=== PATIENT | female | born 1950 | race Caucasian/White ===

== ENCOUNTER 2020-04-28 08:31 | Outpatient (CLI) | payer OTHER, SELFPAY ==
--- NOTE | ~2020-04-28 | DEXA_ITS ---
Bone Density Report Name: Vy Munoz Age: 70 Sex: Female Ethnicity: White Date of : 1950 Indication: postmenopausal; prior fracture; hysterectomy; Referring Provider: Yadiel, Sharon Jimenez Study: Bone densitometry was performed. Exam Date: April 28, 2020 Accession number: [id number] Bone Density: Region BMD T-score Z-score Classification AP Spine (L1-L4) 1.004 -0.4 1.7 Normal Femoral Neck (Left) 0.785 -0.6 1.2 Normal Total Hip (Left) 0.976 0.3 1.8 Normal Total Hip Bilateral Avg 0.993 0.4 1.9 Normal Femoral Neck (Right) 0.793 -0.5 1.3 Normal Total Hip (Right) 1.008 0.5 2.1 Normal World Health Organization criteria for BMD impression classify patients as: Normal (T-score at or above -1.0), Osteopenia (T-score between -1.0 and -2.5), or Osteoporosis (T-score at or below -2.5). 10-year Fracture Risk: FRAX not reported because: All T-scores for Spine Total, Hip Total, Femoral Neck at or above -1.0 Previous Exams: Region Exam Age BMD T-score BMD Change BMD Change Date g/cm2 vs Baseline vs Previous AP Spine(L1-L4) 04/28/2020 70 1.004 -0.4 0.013(1.3%) 0.013(1.3%) 02/15/2018 68 0.991 -0.5 Total Hip(Left) 04/28/2020 70 0.976 0.3 0.016(1.7%) 0.016(1.7%) 02/15/2018 68 0.960 0.1 Total Hip(Right) 04/28/2020 70 1.008 0.5 0.041(4.3%)* 0.041(4.3%)* 02/15/2018 68 0.966 0.2 *Denotes significance at 95% confidence level, LSC for AP Spine = 0.022 g/cm2, LSC for Total Hip = 0.027 g/cm2 Clinical Information Provided by Patient: Has had a low trauma fracture Has used the following medications: Calcium Has the following medical conditions: Hysterectomy Patient maximum height was 62 Menopause Age: 50 Drinks caffeinated beverages Onset of menses at age 13 Number of children 4 Impression: The patient has normal bone mass. The patient has risk factors, including: previous fracture. No significant bone loss was observed. Discussion: BONE DENSITY IS ABOVE THE MINIMUM DESIRABLE LEVEL AT ALL SKELETAL SITES TESTED. This patient?s bone mineral density is above the minimum desirable level (T-score -1.0 or better) at all sites measured. The patient should follow a healthful lifestyle (good nutrition with adequate calcium and vitamin D, and appropriate weight-bearing exercise). Follow-Up: Consider repeating this study in 5 years or sooner if there is some new clinical indication. Reported by: SEE on 04/28/2020 9:0
--- NOTE | ~2020-04-28 | MM_ITS ---
EXAMINATION: MM screening austyn BI w brenda HISTORY: Screening mammogram TECHNIQUE: Craniocaudal and mediolateral oblique 3-D tomosynthesis images were obtained and synthetic 2-D images were generated. CAD analysis was submitted and interpreted. COMPARISON: 02/26/2019, 02/15/2018, 02/02/2017 bilateral digital screening mammogram examinations BREAST PARENCHYMAL COMPOSITION: The breasts are almost entirely fatty. FINDINGS: There is no evidence of suspicious mass, calcification, or architectural distortion to sugg est malignancy in either breast. There has been no suspicious interval change. IMPRESSION: 1. No mammographic evidence of malignancy. 2. Recommend routine screening mammography in one year. BI-RADS Category 1: Negative Reviewed, dictated and finalized at location A. ING AGENCY MANAGER
== END 2020-04-28 08:32 | disposition home or self-care (01) ==
PROVIDERS: Visit Provider Nurse Practitioner Obstetrics & Gynecology
DX: Z12.31 Encounter for screening mammogram for malignant neoplasm of breast (principal); Z78.0 Asymptomatic menopausal state
CPT/HCPCS: 77063; 77067; 77080

== ENCOUNTER 2020-11-07 15:21 | Emergency (ER) | payer OTHER, SELFPAY ==
--- NOTE | ~2020-11-07 | XR_ITS ---
XR ankle RT min 3V DATE: 11/07/2020 15:40 INDICATION: Fall down steps this morning. Pain and swelling of lateral right ankle TECHNIQUE: 4 views COMPARISON: None FINDINGS: There is moderate lateral soft tissue swelling. Subtle linear nondisplaced lateral malleolar fracture is suspected. The medial and posterior malleoli are intact. Ankle mortise is preserved. Ankle joint effusion. Osteopenia. IMPRESSION: Subtle linear nondisplaced lateral malleolar fracture is suggested, with moderate overlyi ng soft tissue swelling, ankle joint effusion Reviewed, dictated and finalized at location A. IMPRESSION: Subtle linear nondisplaced lateral malleolar fracture is suggested, with moderate overlying soft tissue swelling, ankle joint effusion
[2020-11-07 15:25] VITALS: BP 132/72; PULSE 71; RESP 16; TEMP 37.1; O2SAT 97
--- NOTE | 2020-11-07 15:25 | ED.LOWEXIN ---
HPI - Extremity Injury (Lower) General Chief Complaint: Extremity Injury, Lower Stated Complaint: injured r ankle Time Seen by Provider: 11/07/20 15:25 Source: patient and RN notes reviewed History of Present Illness HPI Narrative: Patient is a 70-year-old female who presents the urgent care with complaints of right foot and ankle pain. Patient states that she fell down 1 concrete step this morning at 10 AM, catching herself. Patient denies of hitting her head or any loss of consciousness. Denies of any other injuries from the fall. States that she has been icing, elevating and took ibuprofen for the pain. States that her pain is exacerbated with weightbearing or constant movement. No other acute complaints. No acute distress noted. Patient aware of the plan of care. Some parts of this dictation were generated by voice recognition software and may contain typographical and/or grammatical inaccuracies. Related Data Home Medications Medication Instructions Recorded Confirmed atorvastatin 11/07/20 cyclosporine [Restasis] drp 11/07/20 lisinopril-hydrochlorothiazide tablet 11/07/20 meloxicam 11/07/20 montelukast mg 11/07/20 Allergies Allergy/AdvReac Type Severity Reaction Status Date / Time No Known Allergies Allergy Verified 11/07/20 15:26 Review of Systems Review of Systems: Narrative: CONSTITUTIONAL: Denies fever, chills, or sweats. EYES: Denies visual changes, redness, or discharge. ENT: Denies rhinorrhea, congestion, sore throat, or otalgia. CARDIOVASCULAR: Denies chest pain, palpitations, or edema. RESPIRATORY: Denies cough or dyspnea. GASTROINTESTINAL: Denies abdominal pain, nausea, vomiting, or diarrhea. GENITOURINARY: Denies dysuria or hematuria. SKIN: Denies rash or itching. MUSCULOSKELETAL: Reports of swelling and pain of the right foot and ankle NEUROLOGIC: Denies headache, numbness, or weakness. All other systems reviewed are negative, except as documented in HPI. [facility]LY [facility] Past Medical History Medical History (Updated 11/07/20 @ 15:50 by ERNA Leon) Right knee pain Family History Family History Other Family history of arthritis Family history of cardiovascular disease Family history of malignant neoplasm Hypertension Social History Social History (Reviewed 07/29/19 @ 09:00 by Cherie Felton Smoking status: Never smoker Alcohol intake: current Comments At the time of my signature, I reviewed and agree with the nursing past medical, surgical, social, and family history. There is no relevant family history pertinent to the patient complaint. Exam Narrative: Exam Narrative: GENERAL: This is a well-nourished, well-developed patient, in no apparent distress. HEAD: normocephalic, atraumatic. EYES: PERRL. Sclera clear/white. Vision is grossly intact. EARS: External ears normal NOSE: External nose normal with no obvious nasal discharge, nares without redness, no rhinorrhea. THROAT: Mucous membranes moist NECK: Neck supple CARDIOVASCULAR: Regular rate and rhythm without murmurs, gallops, or rubs. RESPIRATORY: Clear to auscultation. Breath sounds equal bilaterally. No wheezes, rales, or rhonchi. SKIN: warm, intact with no suspicious lesions or rash, good texture and turgor. NEURO: awake, alert, and oriented to person, place and time. There were no obvious focal neurologic abnormalities. EXTREMITIES: Moderate edema noted to the right lateral malleolus with tenderness, mild edema noted to the dorsal aspect of the right lateral foot with mild ecchymosis, mild edema noted to the medial aspect of the right malleolus with mild tenderness. Range of motion not tested due to pain. Positive strong right pedal pulse with capillary refill less than 2 seconds Course Vital Signs Vital signs: Vital Signs Temperature 98.7 F 11/07/20 15:25 Pulse Rate 71 11/07/20 15:25 Respiratory Rate 16 11/07/20 15:25 Blood Pressure 1
== END 2020-11-07 16:03 | disposition home or self-care (01) ==
PROVIDERS: Emergency Provider Nurse Practitioner Family
DX: S82.64XA Nondisplaced fracture of lateral malleolus of right fibula, initial encounter for closed fracture (principal); W10.9XXA Fall (on) (from) unspecified stairs and steps, initial encounter; E78.00 Pure hypercholesterolemia, unspecified; I10 Essential (primary) hypertension; K21.9 Gastro-esophageal reflux disease without esophagitis; Z98.41 Cataract extraction status, right eye
CPT/HCPCS: 29515; 73610; 99214; G0463

== ENCOUNTER 2021-05-03 08:34 | Outpatient (CLI) | payer OTHER, SELFPAY ==
--- NOTE | ~2021-05-03 | MM_ITS ---
EXAMINATION: MM screening austyn BI w brenda HISTORY: Screening mammogram TECHNIQUE: Craniocaudal and mediolateral oblique 3-D tomosynthesis images were obtained and synthetic 2-D images were generated. CAD analysis was submitted and interpreted. COMPARISON: 04/24/2020, 02/22/2019, 02/15/2018 bilateral screening mammogram examinations BREAST PARENCHYMAL COMPOSITION: The breasts are almost entirely fatty. FINDINGS: There is no evidence of suspicious mass, calcification, or architectural distortion to sugg est malignancy in either breast. There has been no suspicious interval change. IMPRESSION: 1. No mammographic evidence of malignancy. 2. Recommend routine screening mammography in one year. BI-RADS Category 1: Negative Reviewed, dictated and finalized at location A. ER ARRANGER
== END 2021-05-03 08:35 | disposition home or self-care (01) ==
LOC: ANHIMG 08:38
DX: Z12.31 Encounter for screening mammogram for malignant neoplasm of breast (principal)
CPT/HCPCS: 77063; 77067

== ENCOUNTER 2023-10-25 07:58 | Outpatient (CLI) | payer OTHER, SELFPAY ==
--- NOTE | ~2023-10-25 | DEXA_ITS ---
Bone Density Report Name: CYRUS WILSON Age: 73 Sex: Female Ethnicity: White Date of : 1950 Indication: postmenopausal; screening for osteoporosis; hysterectomy; Referring Provider: DADA, AIDEE Schneider Study: Bone densitometry was performed. Exam Date: October 25, 2023 Accession number: [id number] Bone Density: Region BMD T-score Z-score Classification AP Spine(L1-L4) 0.982 -0.6 1.7 Normal Femoral Neck (Left) 0.756 -0.8 1.2 Normal Total Hip (Left) 0.993 0.4 2.1 Normal Femoral Neck (Right) 0.845 0.0 2.0 Normal Total Hip (Right) 0.980 0.3 2.0 Normal Total Hip Mean 0.986 0.4 2.1 Normal World Health Organization criteria for BMD impression classify patients as: Normal (T-score at or above -1.0), Osteopenia (T-score between -1.0 and -2.5), or Osteoporosis (T-score at or below -2.5). 10-year Fracture Risk: FRAX not reported because: All T-scores for Spine Total, Hip Total, Femoral Neck at or above -1.0 Previous Exams: Region Exam Age BMD T-score BMD Change BMD Change Date g/cm2 vs Baseline vs Previous AP Spine (L1-L4) 10/25/2023 73 0.982 -0.6 -0.009 (-0.9%) -0.022 (-2.2%) 04/28/2020 70 1.004 -0.4 0.013 (1.3%) 0.013 (1.3%) 02/15/2018 68 0.991 -0.5 Total Hip(Left) 10/25/2023 73 0.993 0.4 0.032 (3.4%)* 0.016 (1.6%) 04/28/2020 70 0.976 0.3 0.016 (1.7%) 0.016 (1.7%) 02/15/2018 68 0.960 0.1 Total Hip(Right) 10/25/2023 73 0.980 0.3 0.013 (1.4%) -0.028 (-2.8%) 04/28/2020 70 1.008 0.5 0.041 (4.3%)* 0.041 (4.3%)* 02/15/2018 68 0.966 0.2 *Denotes significance at 95% confidence level, LSC for AP Spine = 0.022 g/cm2, LSC for Total Hip = 0.027 g/cm2 Clinical Information Provided by Patient: Has used the following medications: Vitamin D, Calcium Has the following medical conditions: Hysterectomy Patient maximum height was 62 Menopause Age: 50 Drinks caffeinated beverages Onset of menses at age 12 Number of children 4 Impression: The patient has normal bone mass. The BMD for the Total Hip(Right) decreased, changing by -2.8% since the last DXA exam. Discussion: BONE DENSITY IS ABOVE THE MINIMUM DESIRABLE LEVEL AT ALL SKELETAL SITES TESTED. This patient?s bone mineral density is above the minimum desirable level (T-score -1.0 or better) at all sites measured. The patient should follow a healthful lifestyle (good nutrition with adequate calcium and vitamin D, and appropri
== END 2023-10-25 07:59 | disposition home or self-care (01) ==
LOC: ANHIMG 08:00
PROVIDERS: PCP Family Medicine; Visit Provider Nurse Practitioner Family
DX: Z78.0 Asymptomatic menopausal state (principal); Z13.820 Encounter for screening for osteoporosis
CPT/HCPCS: 77080

== ENCOUNTER 2024-07-30 14:50 | Outpatient (CLI) | payer OTHER, SELFPAY ==
--- NOTE | ~2024-07-30 | XR_ITS ---
Right Knee Technique: AP, lateral, and sunrise views were obtained. Clinical History: Pain Findings: No fracture or dislocation is seen. Osseous alignment is anatomic. There is advanced patell ofemoral compartment degenerative change with joint space narrowing and osteophyte formation. There i s minimal degenerative spurring of the medial lateral compartments. Soft tissues are unremarkable. No joint effusion is seen. Impression: Severe patellofemoral compartment degenerative change. Minimal degenerative change of the medial lateral compartments. Reviewed, dictated and finalized at location M. E RUNNER Impression: Severe patellofemoral compartment degenerative change. Minimal degenerative change of the medial lateral compartments.
--- NOTE | ~2024-07-30 | XR_ITS ---
Left Knee Technique: AP, lateral, and sunrise views were obtained. Clinical History: Pain Findings: No fracture or dislocation is seen. There is severe patellofemoral compartment degenerative change, with joint space narrowing and osteophyte formation. There is mild to moderate degenerative spurring at the medial lateral compartment.. Soft tissues are unremarkable. No joint effusion is seen . Impression: Severe patellofemoral compartment degenerative change. Mild to moderate degenerative change of the me dial and lateral compartments. Reviewed, dictated and finalized at location M. LIANCE INTERN Impression: Severe patellofemoral compartment degenerative change. Mild to moderate degener ative change of the medial and lateral compartments.
== END 2024-07-30 14:51 | disposition home or self-care (01) ==
LOC: GOSHIMG 14:52
PROVIDERS: PCP Family Medicine; Visit Provider Orthopaedic Surgery
DX: M17.0 Bilateral primary osteoarthritis of knee (principal)
CPT/HCPCS: 73564

== ENCOUNTER 2024-08-06 09:28 | Outpatient (CLI) | payer OTHER, SELFPAY ==
[2024-08-06 09:54] LABS: Hematocrit 45.2 % (37.0-47.0); Hemoglobin 14.7 g/dL (12.0-15.0)
[2024-08-06 10:06] LABS: Albumin Level 4.4 g/dL (3.5-5.1); Estimated Glomerular Filt Rate > 60; Glucose 81 mg/dL (65-110)
== END 2024-08-06 09:29 | disposition home or self-care (01) ==
PROVIDERS: PCP Family Medicine; Visit Provider Orthopaedic Surgery
DX: M17.11 Unilateral primary osteoarthritis, right knee (principal); I10 Essential (primary) hypertension; E78.5 Hyperlipidemia, unspecified; D64.9 Anemia, unspecified
CPT/HCPCS: 36415; 82040; 82565; 82947; 85014; 85018; 93005

== ENCOUNTER 2024-08-20 09:18 | Outpatient (CLI) | payer OTHER, SELFPAY ==
--- OUTSIDE RECORDS SUMMARY | 2024-08-20 10:02 | XMS_ITS | Clinical Summary ---
Author Organization [facility] Address [address] [facility] [address] [place] [id number] Phone Care Team Providers Care District Manager Primary Care Sales Name Role Phone Cesar Valadez MD Unavailable [phone] Brandon Garcias MD Unavailable [phone] Jyoti Johnson DO Primary Care Provider [phone] Allergies Active Allergy Reactions Criticality Noted Date Comments Morphine Nausea only Low 07/29/2022 Following hysterectomy, pt was on IV morphine Medications multivitamin tablet Take 1 tablet by mouth daily Active fish,bora,flax oils-om3,6,9no 1 (Empire 3-6-9) 1,200 mg capsule Take 1 capsule by mouth daily Active aspirin 81 mg enteric coated tablet Take 1 tablet (81 mg total) by mouth daily Active glucosamine/ch ondr rivas A sod (glucosamine-c hondroitin) 167-133 mg capsule 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 Active fexofenadine (ELIER) 180 mg tablet Take 1 tablet (180 mg total) by mouth daily as needed (allergies) 30 tablet 2 01/27/20 22 Active omeprazole (PriLOSEC) 20 mg capsule TAKE 1 CAPSULE BY MOUTH EVERY DAY 90 capsule 2 02/07/20 24 Active mupirocin (BACTROBAN) 2 % ointment Apply topically 3 (three) times a day 22 g 03/26/20 24 Active atorvastatin (LIPITOR) 40 mg tablet TAKE 1 TABLET BY MOUTH EVERY DAY 100 tablet 1 04/29/20 24 Active olmesartan-hyd rochlorothiazi de (BENICAR HCT) 40-25 mg per tablet TAKE 1 TABLET BY MOUTH EVERY DAY 90 tablet 1 07/25/19 25 Active amLODIPine (NORVASC) 5 mg tablet TAKE 1 TABLET (5 MG TOTAL) BY MOUTH DAILY. 90 tablet 1 07/25/19 25 025 Active olmesartan-hyd rochlorothiazi de (BENICAR HCT) 40-25 mg per tablet TAKE 1 TABLET BY MOUTH EVERY DAY 90 tablet 1 02/02/20 24 025 Discontinued amLODIPine (NORVASC) 5 mg tablet TAKE 1 TABLET (5 MG TOTAL) BY MOUTH DAILY. 90 tablet 1 02/02/20 24 025 Discontinued Active Problems Problem Noted Date Diagnosed Date Leg skin lesion, left 03/26/2024 Assessment & Plan (03/26/2024 1:59 PM CDT): Differential includes insect or spider bite. First lesion was cleansed and unroofed with #11 blade and culture taken. Will treat for staph infection with keflex qid x 7 days. Contusion of fifth toe of left foot 03/26/2024 Assessment & Plan (03/26/2024 2:01 PM CDT): May dahlia tape toe. Offered x-ray. She will continue with hard sole shoes and try dahlia taping. Gastroesophageal reflux disease 06/07/2023 Assessment & Plan (06/07/2023 3:06 PM RETAIL SUPERVISOR): Has worsened--after certain food intake, only taking Tums prn. Experiencing some intermittent dysphagia also. Restart the Omeprazole, may need GI/ medication increase if no improvement or worsening for possible EGD. Class 2 obesity due to exces s calories without serious comorbidity with body mass index (BMI) of 36.0 to 36.9 in adult 06/08/2022 Assessment & Plan (12/06/2023 12:38 PM CDT): Patient has lost 10 lbs, has been working on diet/exercise. Healthy, low carbohydrate lifestyle and exercise for 150min/week recommended Assessment & Plan (06/07/2023 3:04 PM RETAIL SUPERVISOR): Healthy, low carbohydrate lifestyle and exercise for 150min/week recommended Medicare annual wellness visit, subsequent 06/02 Assessment & Plan (12/06/2023 12:37 PM CDT): A yearly Essence Enhanced Encounter has been performed today. Vy Munoz is up to date on screening tests. She is in need of None- no screening indicated at this time- these have been ordered. She is not up to date on needed preventative vaccinations; She is in need of Covid-19 (booster). These have been ordered/arranged unless otherwise indicated. Assessment & Plan (06/07/2023 3:02 PM RETAIL SUPERVISOR): A yearly Essence Enhanced Encounter has been performed today. Vy Munoz is not up to date on screening tests. She is in need of DEXA and hepatitis C screen - these have been ordered. She is up to date on needed preventative vaccinations; She is in need of none . These have been ordered/arranged unless otherwise indicated. Deviated septum 03/29/2022 Assessment & Plan (03/29/2022 12:45 PM CDT): She has a severely deviated nasal septum obstructing the right side of her nose. I think she would benefit from surgery to correct that. I discussed the risk of a septoplasty with and without turbinectomy with the patient. There is a risk of continued nasal obstruction, bleeding, septal perforation, permanent anosmia. Also risk of inadequate correction which could result in continued nasal obstruction symptoms. She would like to go ahead and pursue this also. She had no questions. Aortic valve calcification 08/25/2021 Ascending aorta enlargement 08/25/2021 Essential hypertension 06/09/2021 Assessment & Plan (12/06/2023 12:37 PM CDT): BP stable in office, continues current regimen. Renal function stable. Assessment & Plan (06/07/2023 3:04 PM RETAIL SUPERVISOR): BP stable in office, continues current regimen. Renal function stable. Mixed hyperlipidemia 06/09/2021 Assessment & Plan (06/07/2023 3:04 PM RETAIL SUPERVISOR): Lipid panel well controlled on the Atorvastatin, liver function stable, no side effects reported. Pt notes intermittent heart palpitations, denies light-headedness, CP, or SOB with these. Discussed caffeine intake and water intake. Discussed possibility of event monitor, will monitor symptoms and order if worsens/becomes more frequent. Non-seasonal allergic rhinitis due to pollen 09/2012 Resolved Problems Problem Noted Date Diagnosed Date Resolved Date Acute cough 08/04/2022 12/22/2022 Hypertrophy of nasal turbinates 03/31/2022 03/26/2024 Overview (03/31/2022): Added automatically from request for surgery [id number] Nasal obstruction 03/31/2022 03/26/2024 Overview (03/31/2022): Added automatically from request for surgery [id number] Chronic pansinusitis 03/29/2022 024 Assessment & Plan (12/21/2022 9:04 AM CDT): Things look much better. Sinuses appear healthy in generally well healed. I recommended that she resume her allergy nasal spray and use it regularly. There is no need for further intervention. She can follow up here as needed. Assessment & Plan (11/08/2022 9:09 PM CDT): She still has significant debris and inflammation in the left ethmoid cavity and maxillary sinus area. The maxillary sinus opening appears to be stenosed. There is some active drainage also. I recommended further treatment of this. I would like to place her on Bactroban nasal spray and clindamycin for an antibiotic. I am also recommending a steroid shot to help reduce inflammation. She would like to go ahead and pursue that. I have asked her to follow-up in about 1 month. Assessment & Plan (10/06/2022 5:59 PM CDT): Her sinuses appear to be healing quite well. She also notes that she feels much better and can breathe through her nose much better. I recommended no particular intervention. She can use saline spray as needed. She can blow her nose as much as she wants. I would like to see her in about 6 weeks. Assessment & Plan (09/25/2022 6:19 PM CDT): She is doing very well thus far. I recommended avoiding any heavy lifting or straining. Wait several days before she starts blowing her nose. I would like to have her keep her head elevated as much as possible over the next few days. The plan is for a follow-up in about 7-10 days. She had no questions. Assessment & Plan (03/29/2022 12:45 PM CDT): I reviewed her CT scan with her. We looked at the actual films. I described the deviated septum as well as the sinus disease at she has. I am recommending surgery. I discussed the risk of sinus surgery including the risk of recurrent or persistent disease that may require further revision surgery. There is a risk of orbital injury and SCALE SHOOTER injury which could result in blindness or double vision or brain damage. These risks are quite low. Some risk of permanent anosmia. She indicates that she has had a lot of problems with this and is looking forward to surgery. She would like to schedule it. She had no questions. Non-recurrent acute serous o titis media of right ear 01/26/2022 12/22/2022 New daily persistent headache 01/26/2022 12/22/2022 Right chronic serous otitis media 11/25/2021 12/22/2022 Chronic allergic rhinitis 06/09/2021 Dysfunction of right eustachian tube 10/19/2020 03/26/2024 Right knee injury, initial encounter 12/15/2018 12/22/2022 Right foot pain 06/18/2018 12/22/2022 Dyslipidemia 04/10/2014 12/22/2022 Encounters Date Type Department Care Team Description 06/25/2024 ACO [facility] Accountable Care Organization [address] [place] [id number] Jerri Posada MA 06/24/2024 8:20 AM RETAIL SUPERVISOR - 06/24/2024 11:59 PM RETAIL SUPERVISOR Hospital Encounter [facility] [address] [place] [phone] Breast cancer screening by mammogram Discharge Disposition: Discharge to home or self care from Last 3 Months Immunizations Immunization Administration Dates Next Due Influenza, Quadrivalent, Tiffany l Culture-based MDCK, Antibiotic Free, Intramuscular 04/17/2019 Influenza, Quadrivalent, Tiffany l Culture-based MDCK, Preservative Free, Antibiotic Free, Intramuscular 02/02/2022 Influenza, Quadrivalent, Spl it, Preservative Free, Intramuscular 03/24/2023,02/13/2020 Influenza, Trivalent, Cell Culture-based MDCK, Preservative Free, Antibiotic Free, Intramuscular 02/03/2022 Influenza, Trivalent, IM (MDV) 03/11/2013 Influenza, Unspecified 03/05/2022,2020,03/22/2018,03/07,04/21/2016,04/10/2014,03/11/2013 Pneumococcal Conjugate PCV 13 03/28/2018, 018 Pneumococcal Polysaccharide PPV23 04/19/2019 Tdap 02/13/2020,01/13/2010 ZOSTER Recombinant 07/10/2018 Surgical History Surgery Date Site/Laterality Comments HYSTERECTOMY 06/05/2009 - 06/04/2010 Total COLONOSCOPY CATARACT EXTRACTION 2020 SINUS SURGERY 09/19/2022 RESECTION OF BILATERAL JAJA BULLOSA, ENDOSCOPIC BILATERAL TOTAL EHTMOIDECTOMY, BILATERAL FRONTAL SINUSOTOMY, BILATERAL MAXILLARY ANTROSTOMY NASAL SEPTOPLASTY W/ TURBINOPLASTY 09/19/2022 Bilateral Medical History Medical History Date Comments Headache Hypertension Hyperlipidemia Allergic rhinitis GERD (gastroesophageal reflu x disease) Sinusitis Ear problems Tinnitus Anemia 1999 blood transfusio n at time of hysterectomy Obesity History of blood transfusion 1999 fol lowing hysterectomy Sinus congestion 07/2022 seasonal allerg ies per patient Arthritis 2018 Cataract Surgery 2020 Glaucoma 2021 not on any eye d rops pre glaucoma Fibroid Family History Medical History Relation Name Comments Arthritis Brother Jeff Anthony Hypertension Brother Jeff Anthony Hearing loss Father Debra Jefferson Heart attack Father Debra Jefferson Heart disease Father Debra Jefferson Hyperlipidemia Father Debra Jefferson Hypertension Father Debra Jefferson Arthritis Maternal Grandmother Jewel Ozzy Hearing loss Maternal Grandmother Jewel Ozzy Arthritis Mother Kerrie Jefferson Cancer Mother Kerrie Jefferson Hearing loss Mother Kerrie Jefferson Heart disease Mother Kerrie Jefferson Hyperlipidemia Mother Kerrie Jefferson Hypertension Mother Kerrie Jefferson Kidney cancer Mother Kerrie Jefferson Kidney disease Mother Kerrie Jefferson Rashes / Skin problems Mother Kerrie Jefferson Breast cancer Mother's Sister Arthritis Sister Adela Ugalde Hypertension Sister Adela Ugalde Relation Name Status Comments Brother Jeff Anthony Father Debra Anthony Maternal Grandmother Clifford Giraldoedy Mother Kerrie Jacksonnk Mother's Sister Sister Adela Ugalde Social History Tobacco Use Types Packs/Day Years Used Date Smoking Tobacco: Never Cigarettes Passive Smoke Exposure: Never Smokeless Tobacco: Never Tobacco Cessation:Counseling Given: Not Answered AUDIT-C Answer Date Recorded Q1: How often do you have a drink containing alc ohol? Monthly or less 09/19/2022 Q2: How many drinks containi ng alcohol do you have on a typical day when you are drinking? 1 or 2 09/19/2022 Q3: How often do you have si x or more drinks on one occasion? Never 09/19/2022 PHQ-2 Answer Date Recorded PHQ-2 Total Score (If total score is 3 or more points, staff should administer the PHQ-9) 0 03/26/2024 Personal Safety Answer Date Recorded Have you ever been in or are you currently in a harmful physical or emotional relationship or is someone making you feel afraid or unsafe? Denies 12/15/2022 Comments No Sex and Gender Information Value Date Recorded Sex Assigned at Not on file Legal Sex Female 7:06 PM RETAIL SUPERVISOR Gender Identity Female 06/05/2021 4:03 PM RETAIL SUPERVISOR Sexual Orientation Straight 06/05/2021 4: 03 PM RETAIL SUPERVISOR Obstetrics History Para Term AB IAB SAB Ectopic Multiple Livin g Live Births 5 4 4 Date Outcome GA Total Labor Labor/2nd/3rd Weight Sex Type Anes PTL Samia A1 A5 Name Clin Term Term Term Term Last Filed Vital Signs Vital Sign Reading Time Taken Comments Blood Pressure 142/62 04/28/2024 8:30 AM RETAIL SUPERVISOR Pulse 74 04/28/2024 8:30 AM RETAIL SUPERVISOR Temperature 36.8 C (98.2 F) 04/28/2024 8:30 AM RETAIL SUPERVISOR Respiratory Rate 20 04/28/2024 8:30 AM RETAIL SUPERVISOR Oxygen Saturation 97% 04/28/2024 8:30 AM RETAIL SUPERVISOR Inhaled Oxygen Concentration - - Weight 90.7 kg (200 lb) 04/28/2024 8:30 AM RETAIL SUPERVISOR Height 154.9 cm (5' 1 ) 04/28/2024 8:30 AM RETAIL SUPERVISOR Body Mass Index 37.79 04/28/2024 8:30 AM RETAIL SUPERVISOR Plan of Treatment Health Maintenance Due Date Last Done Comments Hepatitis B Screening 02/05/1968 Zoster Vaccine (2 of 2) 09/04/2018 07/10/2018 Covid-19 Vaccine (2023-2 5 season) 2024 04/01/2023, 08/16/2022, 10/05/2021, Additional history exists Influenza Vaccine (#1) 2024 , 03/05/2022, 02/03/2022, Additional history exists Well Visit 65+ 12/05/2024 12/06/2023, 08/2023, 06/02/2022 Depression Screening 03/26/2025 03/26/2024, 12/06/2023, 09/25/2023, Additional history exists Fall Risk Assessment 03/26/2025 03/26/2024, 12/06/2023, 06/07/2023, Additional history exists Breast Cancer Screening-Mammogram 06/24/2025 06/24/2024, 05/31/2023, 05/23/2022, Additional history exists Osteoporosis Screening-Bone Density Scan 10/24/2025 10/25/2023 Colon Cancer Screening-Colonoscopy 12/16/20272022 DTaP/Tdap/Td Vaccine (3 - Td or Tdap) 02/12/2030 02/13/2020, 01/13/2010 Pneumococcal vaccine 65+ Completed 019, 03/28/2018, 03/05/2018 Hepatitis C Screening Completed 11/29/2023 Procedures Procedure Name Priority Date/Time Associated Diagnosis Comments SCREENING MAMMOGRAM BILATERAL W NASIM Schedule Routine, Read Routine (OP Routine) 06/24/2024 8:39 AM RETAIL SUPERVISOR Breast cancer screening by mammogram HEPATITIS C ANTIBODY Routine 11/29/2023 8:09 AM CDT Encounter for hepatitis C screening test for low risk patient HM DEXA SCAN Routine 10/25/2023 COLONOSCOPY 12/15/2022 11:27 AM CDT from Last 3 Months or Most Recently Relevant to Health Maintenance Results * Screening Mammogram Bilateral W Nasim (06/24/2024 8:39 AM RETAIL SUPERVISOR) Anatomical Region Laterality Modality Breast Bilateral Mammography Impressions 06/24/2024 11:28 AM RETAIL SUPERVISOR BI-RADS ATLAS category (overall): 1 - Negative There is no mammographic evidence of malignancy. A 1 year screening mammogram is recommended. The patient has been or will be contacted. We recommend annual screening mammography for women at average risk of breast cancer beginning at age 40, based on guidelines of the [employer] (ACR Practice Parameter for the Performance of Screening and Diagnostic Mammography) and [place] [employer]. For women with and elevated risk of breast cancer, please refer to the ACR Practice Parameter for specific screening recommendations. The patient will be entered into a reminder system with a target due date of 1 year for her next screening exam. Narrative 06/24/2024 11:28 AM RETAIL SUPERVISOR Screening Mammogram Bilateral W Nasim: 06/24/24 The study was acquired using full field digital technology and interpreted from soft copy. 2D digital mammographic views, as well as 3D digital tomosynthesis were performed in the CC and MLO projections. This study was resulted using Computer-Aided Detection (CAD). CLINICAL: Breast cancer screening by mammogram. No relevant medical history has been documented for this patient. History of breast cancer in Mother's Sister. COMPARISONS: 05/31/2023 SCREENING MAMMOGRAM BILATERAL W NASIM 05/23/2022 SCREENING MAMMOGRAM BILATERAL W NASIM 05/03/2021 SCREENING MAMMOGRAM 2D BILATERAL BREAST TISSUE: There are scattered areas of fibroglandular density. FINDINGS: No suspicious masses, suspicious calcifications, or other suspicious findings are seen within either breast. There has been no suspicious change. Brandon Garcias MD IMG MAMMO PROCEDURES Final Result * Hepatitis C antibody Blood (11/29/2023 8:09 AM CDT) Hep C Ab Nonreactive Nonreactive Comment: Interpretive Data Nonreactive: Antibodies to HCV not detected. Does NOT exclude the possibility of recent exposure to HCV. Equivocal: Equivocal for HCV antibodies. Supplemental molecular testing will be automatically performed to determine infection status in accordance with current CDC screening recommendations. Reactive: Positive for HCV antibodies. This may represent current or past HCV infection. Supplemental molecular testing will be automatically performed to determine current infection status in accordance with current CDC screening recommendations. Interpretive data was last revised on 2019. Blood 11/29/2023 8:09 AM CDT 11/29/2023 2:53 PM CDT Nadja Urias NP LAB MICROBIOLOGY - GENERAL ORDER LUIS Edited Result - Final MATTEO [id number] [facility] Department [place] [address] * DEXA SCAN (10/25/2023) Historical Provider HEALTH MAINTENANCE Final Result * COLONOSCOPY (12/15/2022 11:27 AM CDT) Anatomical Region Laterality Modality Other Narrative Procedure Note Shamar Gale, - 12/15/2022 11:27 AM CDT [facility] GI ENDOSCOPY Patient Name: Vy Munoz Procedure Date: 12/15/2022 11:27 AM Date of : 1950 Admit Type: Outpatient Age: 72 Gender: Female Attending MD: Shamar Gale D.O. Room: [facility] ENDOSCOPY ROOM 05 Note Status: Addendum Procedure: Colonoscopy Indications: Screening for colorectal malignant neoplasm Referring MD: Eddie Orr M.D. Providers: Shamar Gale D.O. Medicines: See the Anesthesia note for documentation of the administered medications Complications: No immediate complications. Estimated Blood Loss: Estimated blood loss: none. Procedure: The benefits, risks and alternatives of theprocedure and sedation were discussed and informed consentwas obtained. All questions were answered. Please referto the signed informed consent document in the medical record. The scope was passed under direct vision.The [id number] colonoscope was introduced through theanus and advanced to the cecum, identified byappendiceal orifice and ileocecal valve. The colonoscopy was performed without difficulty. The patient tolerated the procedure well. The quality of the bowel preparation was good. Prep was administered in asplit dose. Findings: A polyp was found in the sigmoid colon. The polyp was pedunculated.The polyp was removed with a hot snare. Resection and retrieval were complete. Impression: - One polyp in the sigmoid colon, removed with ahot snare. Resected and retrieved. Recommendation: - Patient has a contact number available for emergencies. The signs and symptoms of potential delayed complications were discussed with thepatient. Return to normal activities tomorrow. Written discharge instructions were provided to thepatient. - Resume previous diet. - Continue present medications. - Await pathology results. - Repeat colonoscopy in 5 years for surveillancebased on pathology results. Shamar Gale D.O. 12/15/2022 11:53:04 AM Number of Addenda: 1 Note Initiated On: 12/15/2022 11:27 AM Recognized by the [place] [employer] for promoting quality in endoscopy Addendum Number: 1 Addendum Date: 12/15/2022 12:52:39 PM Polyp is RECTAL at approx 20cm Shamar Gale D.O. 12/15/2022 12:53:11 PM Shamar Gale DO ENDOSCOPY PROCEDURES Darian jazlyn Result - Final from Last 3 Months or Most Recently Relevant to Health Maintenance Insurance [facility] ADVANTAGE CHOICE PPO [facility] ADVANTAGE CHOICE PPO Member Subscriber Plan / Payer (Ef fective 2024-Present) Name:Vy Munoz Relation to Subscriber:Self Name:Vy Munoz Payer ID:[id number] (NAIC) Type:MEDICARE RISK OTHER Address: [address] [place] [id number] Care Teams District Manager Primary Care Sales Relationship Specialty Start Date End Date Jyoti Johnson DO [address] [facility] [address] [place] [address] PCP - General Family Medicine 07/30/24 Cesar Valadez MD [address] [place] [address] Consulting Physician Otolaryngology 09/19/22 Brandon Garcias MD [address] [facility] [address] [place] [address] Consulting Physician Family Medicine 03/03/23
--- OUTSIDE RECORDS SUMMARY | 2024-08-20 10:02 | XMS_ITS | Encounter Summary ---
Author Organization [facility] Address [address] [place] [id number] Care Team Providers Care Die Repairer Trimmer Dies Name Role Phone Marco Dugan MD Primary Care Provider [phone] Eddie Orr MD Primary Care Provider [phone] Encounter Details Date Type Department Care Team (Latest Contact Info) Description 04/10/2018 Abstract [facility] , Trevon Reed MD Social History Tobacco Use Types Packs/Day Years Used Date Smoking Tobacco: Never Assessed Comments Unknown Sex and Gender Information Value Date Recorded Sex Assigned at Not on file Legal Sex Female 8:16 PM CDT Gender Identity Not on file Sexual Orientation Not on file documented as of this encounter Plan of Treatment Not on file documented as of this encounter Visit Diagnoses Not on filedocumented in this encounter Care Teams Die Repairer Trimmer Dies Relationship Specialty Start Date End Date Marco Dugan MD [address] [facility] [address] [place] [id number] PCP - General FAMILY PRACTICE 09/19/18 06/10/21 Eddie Orr MD [address] [facility] [address] [place] [address] PCP - General FAMILY PRACTICE 06/11/21 documented as of this encounter
--- OUTSIDE RECORDS SUMMARY | 2024-08-20 10:02 | XMS_ITS | Encounter Summary ---
Author Organization [facility] Address [facility] [place] [address] Care Team Providers Care Injection Wax Molder Name Role Phone Unavailable Primary Care Provider Unavailabl e Encounter Details Date Type Department Care Team (Late st Contact Info) Description 05/09/2023 Lab Requisition [facility] - DermPath Lab [address] [facility], [place] [id number] Molly Juarez MD [address] [facility] [address] [place] [address] Social History Tobacco Use Types Packs/Day Years Used Date Smoking Tobacco: Never Assessed Sex and Gender Information Value Date Recorded Sex Assigned at Not on file Gender Identity Not on file Sexual Orientation Not on file documented as of this encounter Plan of Treatment Not on file documented as of this encounter Procedures Procedure Name Priority Date/Time Associated Diagnosis Comments DERMATOPATHOLOGY Routine 05/09/2023 10:2 7 AM SHEET FOLDER documented in this encounter Results * DERMATOPATHOLOGY (05/09/2023 10:27 AM SHEET FOLDER) Case Report Dermatopathology Report Case: [id number] Authorizing Provider: Molly Juarez MD Collected: 05/09/2023 10:27 AM Ordering Location: [facility] DermPath Lab Received: 05/10/2023 01:16 PM Pathologist: Mary Jane Funes MD Specimen: Skin, mid chest 1:37 PM SHEET FOLDER DERMATOPATHOLOGY LABORATORY Final Diagnosis Specimen A. 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 The specimen consists of a shave biopsy measuring 5x4x1 mm. Jar 0. 3 1:37 PM [facility] DERMATOPATHOLOGY LABORATORY Microscopic Description Specimen A. SKIN, mid chest: The epidermis is mildly acanthotic. There is a lichenoid infiltrate with vacuolar changes of basilar keratinocytes and scattered necrotic keratinocytes. 3 1:37 PM [facility] DERMATOPATHOLOGY LABORATORY Disclaimer An external and internal positive and negative controls are appropriate for the histochemical, immunohistochemical and immunofluorescence stain(s) in this case (if any), except where stated explicitly. The performance characteristics of the stain(s) cited in this report were developed and its performance characteristic determined by the Dermatopathology Laboratory at [facility], directed by Dr. Wyatt Smith. These tests need not be, and therefore are not, approved by the [place] Food and Drug Administration. The tests are used for clinical purposes. Billing Codes Specimen Charges Stain Charges 14458 1 3 1:37 PM [facility] DERMATOPATHOLOGY LABORATORY Embedded Images 3 1:37 PM [facility] DERMATOPATHOLOGY LABORATORY Pathology/Cytolo gy TISSUE SPECIMEN FROM SKIN / Unknown 05/09/2023 10:27 AM SHEET FOLDER 05/10/2023 1:16 PM SHEET FOLDER Molly Juarez MD LAB - PATHOLOGY/CYTO LOGY ORDERABLES DERMATOPATHOLOGY LABORATORY [facility] - Department of Dermatology [address] [place] [address], [facility] [phone] documented in this encounter Visit Diagnoses Not on filedocumented in this encounter
--- OUTSIDE RECORDS SUMMARY | 2024-08-20 10:02 | XMS_ITS | Encounter Summary ---
Author Organization [facility] Address [facility] [place] [address] Care Team Providers Care Equipment Service Technician Name Role Phone Unavailable Primary Care Provider Unavailabl e Encounter Details Date Type Department Care Team (Late st Contact Info) Description 04/26/2022 Lab Requisition [facility] DermPath Lab [address] [facility] [place] [address] Molly Juarez MD [address] [facility] [address] [place] [address] Social History Tobacco Use Types Packs/Day Years Used Date Smoking Tobacco: Never Assessed Sex and Gender Information Value Date Recorded Sex Assigned at Not on file Gender Identity Not on file Sexual Orientation Not on file documented as of this encounter Plan of Treatment Not on file documented as of this encounter Procedures Procedure Name Priority Date/Time Associated Diagnosis Comments DERMATOPATHOLOGY Routine 04/26/2022 12:0 0 AM SUPERINTENDENT COMMISSARY documented in this encounter Results * DERMATOPATHOLOGY (04/26/2022 12:00 AM SUPERINTENDENT COMMISSARY) Case Report Dermatopathology Report [id number]: [id number] Authorizing Provider: Molly Juarez MD Collected: 04/26/2022 12:00 AM Ordering Location: [facility] DermPath Lab Received: 04/26/2022 04:57 PM Pathologist: Cherie Magana MD Specimen: Skin, right arm 11:30 AM SUPERINTENDENT COMMISSARY DERMATOPATHOLOGY LABORATORY Final Diagnosis Specimen A. SKIN, right arm: INTRADERMAL MELANOCYTIC NEVUS (D22.61) 2 11:[address] [facility] DERMATOPATHOLOGY LABORATORY Clinical History Nevus vs. BCC 11:[address] [facility] DERMATOPATHOLOGY LABORATORY Gross Description Specimen A: Received is one formalin filled container labeled with the patient's name and designated right arm. The specimen consists of a shave biopsy measuring 7x7x1 mm. Jar 0. 2 11:[address] [facility] DERMATOPATHOLOGY LABORATORY Microscopic Description Specimen A. SKIN, right arm: There are nests of cytologically bland melanocytes within the dermis that mature with depth. 11:[address] [facility] DERMATOPATHOLOGY LABORATORY Disclaimer An external and internal positive and negative controls are appropriate for the histochemical, immunohistochemical and immunofluorescence stain(s) in this case (if any), except where stated explicitly. The performance characteristics of the stain(s) cited in this report were developed and its performance characteristic determined by the Dermatopathology Laboratory at [facility], directed by Dr. Wyatt Smith. These tests need not be, and therefore are not, approved by the [place] Food and Drug Administration. The tests are used for clinical purposes. Billing Codes Specimen Charges Stain Charges 37115 1 2 11:[address] [facility] DERMATOPATHOLOGY LABORATORY Embedded Images 11:[address] [facility] DERMATOPATHOLOGY LABORATORY Pathology/Cytolog y TISSUE SPECIMEN FROM SKIN / Unknown 04/26/2022 04/26/2022 4:57 PM SUPERINTENDENT COMMISSARY Molly Juarez MD LAB - PATHOLOGY/CYTO LOGY ORDERABLES DERMATOPATHOLOGY LABORATORY [facility] - Department of Dermatology [address] [phone] documented in this encounter Visit Diagnoses Not on filedocumented in this encounter
--- OUTSIDE RECORDS SUMMARY | 2024-08-20 10:02 | XMS_ITS | Encounter Summary ---
Author Organization [facility] Healthcare Address [address] [place] [address] Care Team Providers Care Shot Core Drill Operator Helper Name Role Phone Cesar Valadez MD Unavailable [phone] Brandon Garcias MD Unavailable [phone] Brandon Garcias MD Primary Care Provider [phone] Jyoti Johnson DO Primary Care Provider [phone] Encounter Details Date Type Department Care Team (Late st Contact Info) Description 05/14/2024 Telephone [facility] Medical Group Primary Care at [address] [address] Brandon Garcias MD [address] [place] [address] [address] [place] [address] Social History Tobacco Use Types Packs/Day Years Used Date Smoking Tobacco: Never Cigarettes Passive Smoke Exposure: Never Smokeless Tobacco: Never AUDIT-C Answer Date Recorded Q1: How often [...] on file Legal Sex Female 7:06 PM POWER ELECTRONICS ENGINEER Gender Identity Female 06/05/2021 4:03 PM POWER ELECTRONICS ENGINEER Sexual Orientation Straight 06/05/2021 4: 03 PM POWER ELECTRONICS ENGINEER documented as of this encounter Plan of Treatment Not on file documented as of this encounter Visit Diagnoses Not on filedocumented in this encounter Care Teams Shot Core Drill Operator Helper Relationship Specialty Start Date End Date Brandon Garcias MD [address] [facility] [address] [place] [address] PCP - General Family Medicine 05/19/23 07/29/24 Jyoti Johnson DO [address] [place] [address] [address] [place] [address] PCP - General Family Medicine 07/30/24 Cesar Valadez MD [address] [place] [address] Consulting Physician Otolaryngology 09/19/22 Brandon Garcias MD [address] [facility] [address] [place] [address] Consulting Physician Family Medicine 03/03/23 documented as of this encounter
--- OUTSIDE RECORDS SUMMARY | 2024-08-20 10:02 | XMS_ITS | Clinical Summary ---
Author Organization [facility] Address [address] [place] [address] Care Team Providers Care Scrap Baller Name Role Phone Unavailable Primary Care Provider Unavailabl e Source Comments [facility],non-owned Affiliates and Associated Physician Practices is amultiple site organization consisting of ambulatory clinics and hospital sitesin [place], [place]. This disclosure is being madepursuant to the Care Everywhere program and may not contain all information available regarding this patient. Last updated 18.[facility] [employer] Social History Tobacco Use Types Packs/Day Years Used Date Smoking Tobacco: Never Assessed Sex and Gender Information Value Date Recorded Sex Assigned at Not on file Gender Identity Not on file Sexual Orientation Not on file Plan of Treatment Health Maintenance Due Date Last Done Comments BONE DENSITY TESTING 1950 COLOGUARD (AGES 45-75) - COL ON CA SCREENING 1950 COLON MONITORING 1950 COLONOSCOPY - COLON CA SCREENING 1950 CT COLONOGRAPHY - COLON CA SCREENING 1950 Colorectal Cancer Screening 1950 FIT - COLON CA SCREENING 1950 FLEX SIG - COLON CA SCREENING 1950 LIPID TESTING 1950 MAMMOGRAM 1950 MEDICARE AWV 12 MONTHS 1950 HEPATITIS C SCREENING 01/31/1968 DTAP/TDAP/TD VACCINES (1 - Tdap) 1969 PNEUMOCOCCAL VACCINE 50+ (1 of 1 - PCV) 02/05/2000 ZOSTER VACCINE (1 of 2) 02/05/2000 COVID-19 VACCINE (2023-2 5 season) 2024 INFLUENZA VACCINE (#1) 2024 DEPRESSION SCREENING 06/05/2024 Respiratory Syncytial Virus (RSV) Vaccine Pt: or over 60 yrs (1 - 1-dose 75+ series) 2025 HEPATITIS B VACCINE Aged Out No longe r eligible based on patient's age to complete this topic HIB VACCINE Aged Out No longer eligi ble based on patient's age to complete this topic HPV VACCINE Aged Out No longer eligi ble based on patient's age to complete this topic MENINGOCOCCAL (Group B) VACC INE SHARED DECISION-MAKING Aged Out No longer eligibl e based on patient's age to complete this topic MENINGOCOCCAL GROUPS A/C/Y/W VACCINE Aged Out No longer eligible b ased on patient's age to complete this topic
--- OUTSIDE RECORDS SUMMARY | 2024-08-20 10:02 | XMS_ITS | Clinical Summary ---
Author Organization [facility] Address [address] [place] [address] Care Team Providers Care Flux Core Welder Name Role Phone Eddie Orr MD Primary Care Provider [phone] Allergies Active Allergy Reactions Criticality Noted Date Comments Hydrochlorothiazide Unknown 01/21/2013 Influenza Virus Vaccine Unknown 09/07/2015 Medications Glucosamine 750 MG Tab Take 1 tablet by mouth daily. Active aspirin EC (ASPIRIN LOW DOSE) 81 MG tablet Take 1 tablet by mouth daily. Active calcium carbonate 1250 (500 Ca) MG tablet Take 1 tablet by mouth daily. Active multivitamin tablet Take 1 tablet by mouth daily. Active Towner 3 1200 MG Cap Take 1 capsule by mouth daily. Active meloxicam 15 MG tabletIndications :Pain in both feet TAKE ONE TABLET BY MOUTH ONCE DAILY NEEDED 90 tablet 3 0 Active RESTASIS 0.05 % ophthalmic emulsion Place 1 drop into both eyes 2 (two) times daily. 1 Active lisinopril-hydroC HLOROthiazide 20-12.5 MG tabletIndications :Essential hypertension TAKE TWO TABLETS BY MOUTH ONCE DAILY 180 tablet 3 1 Active atorvastatin 20 MG tabletIndications :Dyslipidemia Take 1 tablet (20 mg total) by mouth daily. 90 tablet 3 1 Active montelukast 10 MG tabletIndications :Non-seasonal allergic rhinitis due to pollen Take 1 tablet (10 mg total) by mouth nightly at bedtime. 90 tablet 3 1 Active Active Problems Problem Noted Date Diagnosed Date Dysfunction of right eustachian tube 10/19/2020 Class 2 obesity due to exces s calories without serious comorbidity with body mass index (BMI) of 37.0 to 37.9 in adult 10/19/2020 Right knee injury, initial encounter 12/15/2018 Right foot pain 06/18/2018 Dyslipidemia 04/10/2014 Non-seasonal allergic rhinitis due to pollen 09/2012 Essential hypertension 10/06/2012 Overview (12/15/2018): Onset: 06/17/2009 Resolved Problems Problem Noted Date Diagnosed Date Resolved Date Encounter for preventive health examination 09/13/2012 02/14/2020 Immunizations Name Administration Dates Next Due Flucelvax 2 YRS+ (Multi-Dose Vial) 04/17/2019 Fluzone 6 Months+ Quad (0.5 mL Prefilled Syringe) 02/13/2020 Influenza (Generic) 03/07/2017,04/21/2016,2013 Influenza Adult (Generic) 03/22/2018,02/25/2015, 03/11/2013 PFIZER COVID-19 (ORIGINAL FO RMULATION, PURPLE CAP) mRNA, LNP-S, PF, 30 MCG/0.3 ML DOSE 08/03/2020,07/13/2020 Pneumococcal (Pneumovax 23) 04/19/2019 Pneumococcal (Prevnar 13) 03/28/2018 Shingrix 07/10/2018 Tdap (Boostrix) 02/13/2020 Tdap (Generic) 01/13/2010 Family History Medical History Relation Comments Hyperlipidemia Brother CAD Father MYOCARDIAL INFARCTION ARRHYTHMIAS Father Kidney Cancer Mother Relation Status Comments Brother Father Mother Social History Tobacco Use Types Packs/Day Years Used Date Smoking Tobacco: Never Alcohol Use Standard Drinks/Week Comments No 0 (1 standard drink = 0.6 oz pur e alcohol) AUDIT-C Answer Date Recorded Frequency of Alcohol Consumption Never 12/15/2018 Average Number of Drinks Not on file 019 Frequency of Binge Drinking Not on file 12/03 Comments Unknown Sex and Gender Information Value Date Recorded Sex Assigned at Not on file Legal Sex Female 8:16 PM CDT Gender Identity Not on file Sexual Orientation Not on file Last Filed Vital Signs Vital Sign Reading Time Taken Comments Blood Pressure 128/80 03/15/2021 7:49 AM CDT Pulse 60 05/17/2016 12:51 PM INTELLIGENCE SENIOR SERGEANT Temperature 36.6 C (97.8 F) 10/19/2020 12:47 PM CDT Respiratory Rate - - Oxygen Saturation - - Inhaled Oxygen Concentration - - Weight 93.4 kg (206 lb) 03/15/2021 7:49 AM CDT Height 157.5 cm (5' 2 ) 03/15/2021 7:49 AM CDT Body Mass Index 37.68 03/15/2021 7:49 AM CDT Plan of Treatment Health Maintenance Due Date Last Done Comments Hepatitis C 02[birth year]05/1968 Annual Medicare Wellness Visit 2015 Dexa Scan (General) 2015 Zoster Vaccines (2 of 2) 09/04/2018 07/10/2018 Mammogram Screening 05/03/2023 05/03/2021 Colorectal Cancer Screening FIT-DNA (3 Years) 11/24/2023 11/23/2020 COVID-19 Vaccine ( season) 2024 03/08/2021, 08/03/2020, 07/13/2020 Influenza Adult (#1) 2024 03/05/2021, 02/13/2020, 04/17/2019, Additional history exists RSV Immunization or 60+ Years (1 - 1-dose 75+ series) 2025 DTaP, Tdap and Td Vaccines (3 - Td or Tdap) 02/12/2030 02/13/2020, 01/13/2010 Colorectal Cancer Screening Colonoscopy (10 Years) Discontinued 06/05/2012 Pneumococcal Vaccine: 65+ Years Completed 04/19/2019, 03/28/2018, 03/05/2018 Meningococcal B Vaccine Aged Out No l onger eligible based on patient's age to complete this topic Meningococcal Vaccine Aged Out No isaias deidre eligible based on patient's age to complete this topic RSV Immunizations Under 20 Months Aged Out No longer eligible based on patient's age to complete this topic Procedures Procedure Name Priority Date/Time Associated Diagnosis Comments MG SCREENING BOBBY DIGI Routine 05/03/2021 Encounter for screening mammogram for malignant neoplasm of breast COLOGUARD (SCAN ORDER) Routine 11/23/2020 COLONOSCOPY Routine 06/05/2012 12:00 AM INTELLIGENCE SENIOR SERGEANT from Last 3 Months or Most Recently Relevant to Health Maintenance Results * MG SCREENING BOBBY DIGI (05/03/2021) Anatomical Region Laterality Modality Breast Bilateral Mammography Marco Dugan MD MAMMO Final Resul t * COLOGUARD (SCAN) (11/23/2020) Stool specimen (specimen) 11/23/2020 Marco Dugan MD SCANNING Edited Resu lt - Final [facility] ONBASE * Colonoscopy (06/05/2012 12:00 AM INTELLIGENCE SENIOR SERGEANT) 06/05/2012 06/05/2012 Narrative TOUCHWORKS TO EPIC CONVERSION - 06/05/2012 12:00 AM INTELLIGENCE SENIOR SERGEANT Documented hx of procedure Procedure Note Trevon Ochoa MD - 08/23/2018 Documented hx of procedure Generic Derek Ochoa MD GI PROCEDURE ORDERABLES Final Result Performing Organization Address [facility]/ZIP Co de Phone Number TOUCHWORKS TO EPIC CONVERSION from Last 3 Months or Most Recently Relevant to Health Maintenance Insurance [facility] Care Teams Flux Core Welder Relationship Specialty Start Date End Date Eddie Orr MD [address] [address] PCP - General FAMILY PRACTICE 06/11/21
--- OUTSIDE RECORDS SUMMARY | 2024-08-20 10:02 | XMS_ITS | Referral Summary ---
Author Organization [facility] Address [address] [place] [address] Phone Care Team Providers Care Enterprise Systems Engineer Name Role Phone Cesar Valadez MD Unavailable [phone] Brandon Garcias MD Unavailable [phone] Jyoti Johnson DO Primary Care Provider [phone] Encounters Date Type Department Care Team Description 06/25/2024 ACO Quality [facility] Accountable Care Organization [address] [place] [address] Jerri Posada MA 06/24/2024 8:20 AM LEGAL PARAPROFESSIONAL - 06/24/2024 11:59 PM LEGAL PARAPROFESSIONAL Hospital Encounter [facility] [address] [place] [phone] Breast cancer screening by mammogram Discharge Disposition: Discharge to home or self care from Last 3 Months Allergies Active Allergy Reactions Criticality Noted Date Comments Morphine Nausea only Low 07/29/2022 Following hysterectomy, pt was on IV morphine Medications multivitamin tablet Take 1 tablet by mouth daily Active fish,bora,flax oils-om3,6,9no 1 (Riggins 3-6-9) 1,200 mg capsule Take 1 capsule by mouth daily Active aspirin 81 mg enteric coated tablet Take 1 tablet (81 mg total) by mouth daily Active glucosamine/ch ondr rivas A sod (glucosamine-c hondroitin) 167-133 mg capsule Take by mouth dosimetrist before breakfast Active fexofenadine (ELIER) 180 mg [...] 06/07/2023 Assessment & Plan (06/07/2023 3:06 PM LEGAL PARAPROFESSIONAL): Has worsened--after certain food intake, only taking [...] recommended Assessment & Plan (06/07/2023 3:04 PM LEGAL PARAPROFESSIONAL): Healthy, low carbohydrate lifestyle and exercise for [...] indicated. Assessment & Plan (06/07/2023 3:02 PM LEGAL PARAPROFESSIONAL): A yearly Essence Enhanced Encounter has been [...] stable. Assessment & Plan (06/07/2023 3:04 PM LEGAL PARAPROFESSIONAL): BP stable in office, continues current regimen. Renal function stable. Mixed hyperlipidemia 06/09/2021 Assessment & Plan (06/07/2023 3:04 PM LEGAL PARAPROFESSIONAL): Lipid panel well controlled on the Atorvastatin, [...] (03/31/2022): Added automatically from request for surgery [id number] Nasal obstruction 03/31/2022 03/26/2024 Overview (03/31/2022): Added automatically from request for surgery [id number] Chronic pansinusitis 03/29/2022 024 Assessment & Plan [...] is a risk of orbital injury and OCCUPATIONAL THER injury which could result in blindness or [...] foot pain 06/18/2018 12/22/2022 Dyslipidemia 04/10/2014 12/22/2022 Immunizations Immunization Administration Dates Next Due Influenza, [...] PPV23 04/19/2019 Tdap 02/13/2020,01/13/2010 ZOSTER Recombinant 07/10/2018 Social History Tobacco Use Types Packs/Day Years [...] on file Legal Sex Female 7:06 PM LEGAL PARAPROFESSIONAL Gender Identity Female 06/05/2021 4:03 PM LEGAL PARAPROFESSIONAL Sexual Orientation Straight 06/05/2021 4: 03 PM LEGAL PARAPROFESSIONAL Last Filed Vital Signs Vital Sign Reading Time Taken Comments Blood Pressure 142/62 04/28/2024 8:30 AM LEGAL PARAPROFESSIONAL Pulse 74 04/28/2024 8:30 AM LEGAL PARAPROFESSIONAL Temperature 36.8 C (98.2 F) 04/28/2024 8:30 AM LEGAL PARAPROFESSIONAL Respiratory Rate 20 04/28/2024 8:30 AM LEGAL PARAPROFESSIONAL Oxygen Saturation 97% 04/28/2024 8:30 AM LEGAL PARAPROFESSIONAL Inhaled Oxygen Concentration - - Weight 90.7 kg (200 lb) 04/28/2024 8:30 AM LEGAL PARAPROFESSIONAL Height 154.9 cm (5' 1 ) 04/28/2024 8:30 AM LEGAL PARAPROFESSIONAL Body Mass Index 37.79 04/28/2024 8:30 AM LEGAL PARAPROFESSIONAL Plan of Treatment Not on file Procedures Procedure Name Priority Date/Time Associated Diagnosis Comments SCREENING MAMMOGRAM BILATERAL W NASIM Schedule Routine, Read Routine (OP Routine) 06/24/2024 8:39 AM LEGAL PARAPROFESSIONAL Breast cancer screening by mammogram HEPATITIS C ANTIBODY Routine 11/29/2023 8:09 AM CDT Encounter for hepatitis C screening test for low risk patient HM DEXA SCAN Routine 10/25/2023 COLONOSCOPY 12/15/2022 11:27 AM CDT from Last 3 Months or Most Recently Relevant to Health Maintenance Results * Screening Mammogram Bilateral W Nasim (06/24/2024 8:39 AM LEGAL PARAPROFESSIONAL) Anatomical Region Laterality Modality Breast Bilateral Mammography Impressions 06/24/2024 11:28 AM LEGAL PARAPROFESSIONAL BI-RADS ATLAS category (overall): 1 - Negative There is no mammographic evidence of malignancy. A 1 year screening mammogram is recommended. The patient has been or will be contacted. We recommend annual screening mammography for women at average risk of breast cancer beginning at age 40, based on guidelines of the [employer] (ACR Practice Parameter for the Performance of Screening and Diagnostic Mammography) and [employer]. For women with and elevated risk of breast cancer, please refer to the ACR Practice Parameter for specific screening recommendations. The patient will be entered into a reminder system with a target due date of 1 year for her next screening exam. Narrative 06/24/2024 11:28 AM LEGAL PARAPROFESSIONAL Screening Mammogram Bilateral W Nasim: 06/24/24 The [...] been no suspicious change. Brandon Garcias MD [facility] PROCEDURES Final Result * Hepatitis C [...] ORDER LUIS Edited Result - Final MATTEO [place] [id number] [address] Department [place] [address] * HM DEXA SCAN (10/25/2023) us Historical Provider HEALTH MAINTENANCE Final Result * COLONOSCOPY (12/15/2022 11:27 AM CDT) Anatomical Region Laterality Modality Other Narrative Procedure Note Shamar Gale, - 12/15/2022 11:27 AM CDT [facility] GI ENDOSCOPY Patient Name: Vy Munoz Procedure Date: 12/15/2022 11:27 AM Date of : 1950 Admit Type: Outpatient Age: 72 Gender: Female Attending MD: Shamar Gale D.O. Room: [facility] ENDOSCOPY ROOM 05 Note Status: Addendum Procedure: Colonoscopy Indications: Screening for colorectal malignant neoplasm Referring MD: Eddie Orr M.D. Providers: Shamar W. Gale, D.O. Medicines: See the Anesthesia note for documentation of the administered medications Complications: No immediate complications. Estimated Blood Loss: Estimated blood loss: none. Procedure: The benefits, risks and alternatives of theprocedure and sedation were discussed and informed consentwas obtained. All questions were answered. Please referto the signed informed consent document in the medical record. The scope was passed under direct vision.The [id number] colonoscope was introduced through theanus and advanced [...] On: 12/15/2022 11:27 AM Recognized by the [employer] for promoting quality in endoscopy Addendum Number: 1 Addendum Date: 12/15/2022 12:52:39 PM Polyp is RECTAL at approx 20cm Shamar Gale D.O. 12/15/2022 12:53:11 PM Shamar Gale DO ENDOSCOPY PROCEDURES Darian jazlyn Result - Final from Last 3 Months or Most Recently Relevant to Health Maintenance Insurance [facility] Member Subscriber Plan / Payer ( fective 2021-Present) Name:Vy Munoz Relation to Subscriber:Self Name:Vy Munoz Payer ID:[id number] (IC) Type:MEDICARE RISK OTHER Address: [address] ADVANTAGE CHOICE O [employer] ADVANTAGE CHOICE PPO Care Teams Enterprise Systems Engineer Relationship Specialty Start Date End Date Jyoti Johnson DO [address] [place] [address] [address] [place] [address] PCP - General Family Medicine 07/30/24 Cesar Valade[place] [address] Consulting Physician Otolaryngology 09/19/22 Brandon Garcias MD [address] [place] [address] Consulting Physician Family Medicine 03/03/23
[2024-08-20 13:29] LABS: Hematocrit 46.9 % (37.0-47.0); Hemoglobin 15.2 g/dL (12.0-15.0); Mean Corpuscular HGB Conc 32.4 g/dl (32-36); Mean Corpuscular Hemoglobin 29.9 pg (26-34); Mean Corpuscular Volume 92.1 fl (80-100); Mean Platelet Volume 10.5 fl (7.4-10.4); Platelet Count Result 275 k/mm3 (150-375); Red Blood Count 5.09 M/mm3 (4.2-5.4); Red Cell Distribution Width 13.5 % (11.5-14.5); White Blood Count 5.3 K/mm3 (4.5-10.0)
[2024-08-20 13:52] LABS: Alanine Aminotransferase 52 U/L (6-35); Albumin Level 4.6 g/dL (3.5-5.1); Alkaline Phosphatase 101 U/L (38-126); Anion Gap 10 mmol/L (4-12); Aspartate Amino Transferase 51 U/L (14-36); Bilirubin,Total 0.8 mg/dL (0.2-1.3); Blood Urea Nitrogen 21 mg/dL (7-17); Calcium 9.9 mg/dL (8.4-10.2); Carbon Dioxide 32 mmol/L (22-30); Chloride 100 mmol/L (98-107); Cholesterol 172 mg/dL (0-200); Estimated Glomerular Filt Rate > 60; Glucose 91 mg/dL (65-110); HDL Direct 63 mg/dL; Potassium 4.5 mmol/L (3.4-5.0); Sodium 142 mmol/L (137-145); Triglycerides 116 mg/dL (<150)
[2024-08-20 14:04] LABS: LDL Cholesterol Direct 67 mg/dL
[2024-08-20 15:31] LABS: Hemoglobin A1C 5.3 % (<5.7)
== END 2024-08-20 09:19 | disposition home or self-care (01) ==
PROVIDERS: PCP Family Medicine; Visit Provider Family Medicine
DX: E78.5 Hyperlipidemia, unspecified (principal); Z79.899 Other long term (current) drug therapy; I10 Essential (primary) hypertension; R73.03 Prediabetes; E66.9 Obesity, unspecified
CPT/HCPCS: 36415; 80053; 80061; 83036; 84443; 85027

== ENCOUNTER 2024-11-22 09:29 | Outpatient (CLI) | payer OTHER, SELFPAY ==
[2024-11-22 18:36] LABS: Hematocrit 43.6 % (37.0-47.0); Hemoglobin 14.4 g/dL (12.0-15.0); Mean Corpuscular Hemoglobin 29.6 pg (26-34); Mean Corpuscular Volume 89.5 fl (80-100); Platelet Count Result 265 k/mm3 (150-375); Red Blood Count 4.87 M/mm3 (4.2-5.4); Red Cell Distribution Width 13.7 % (11.5-14.5); White Blood Count 5.1 K/mm3 (4.5-10.0)
[2024-11-22 18:43] LABS: Alanine Aminotransferase 41 U/L (6-35); Albumin Level 4.1 g/dL (3.5-5.1); Alkaline Phosphatase 93 U/L (38-126); Anion Gap 12 mmol/L (4-12); Aspartate Amino Transferase 44 U/L (14-36); Bilirubin,Total 0.6 mg/dL (0.2-1.3); Blood Urea Nitrogen 17 mg/dL (7-17); Calcium 9.5 mg/dL (8.4-10.2); Carbon Dioxide 26 mmol/L (22-30); Chloride 103 mmol/L (98-107); Cholesterol 173 mg/dL (0-200); Estimated Glomerular Filt Rate > 60; Glucose 93 mg/dL (65-110); HDL Direct 61 mg/dL; Potassium 3.9 mmol/L (3.4-5.0); Sodium 141 mmol/L (137-145); Total Protein 7.1 g/dL (6.3-8.2); Triglycerides 121 mg/dL (<150)
[2024-11-22 18:54] LABS: LDL Cholesterol Direct 70 mg/dL
[2024-11-22 19:03] LABS: Hemoglobin A1C 5.5 % (<5.7)
== END 2024-11-22 09:30 | disposition home or self-care (01) ==
LOC: ANHGOSHLAB 09:30
PROVIDERS: PCP Family Medicine; Visit Provider Family Medicine
DX: Z79.899 Other long term (current) drug therapy (principal); I10 Essential (primary) hypertension; E78.5 Hyperlipidemia, unspecified; R73.03 Prediabetes; E66.9 Obesity, unspecified
CPT/HCPCS: 36415; 80053; 80061; 83036; 84443; 85027

== ENCOUNTER 2024-12-23 11:36 | Outpatient (CLI) | payer OTHER, SELFPAY ==
--- OUTSIDE RECORDS SUMMARY | 2024-12-23 11:42 | XMS_ITS | Encounter Summary ---
Author Organization [facility] Address [address] [place] [address] Care Team Providers Care Meeting Facilitator Name Role Phone Cesar Valadez MD Unavailable [phone] Brandon Garcias MD Unavailable [phone] Brandon Garcias MD Primary Care Provider [phone] Jyoti Johnson DO Primary Care Provider [phone]- [phone] Encounter Details Date Type Department Care Team (Late st Contact Info) Description 05/14/2024 Telephone [facility] Medical [facility] Primary Care at [address] [address] Brandon Garcias MD [address] [place] [address] [address] [place] [address] Social History Tobacco Use Types [...] on file 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 Gender Identity Female 06/05/2021 4:03 PM BILLET WORKER Sexual Orientation Straight 06/05/2021 4: 03 PM BILLET WORKER documented as of this encounter Plan of Treatment Not on file documented as of this encounter Visit Diagnoses Not on filedocumented in this encounter Care Teams Meeting Facilitator Relationship Specialty Start Date End Date Brandon Garcias MD [address] [facility] [address] [place] [address] PCP - General Family Medicine 05/19/23 07/29/24 Jyoti Johnson DO [address] [place] [address] [facility] [address] [place] [address] PCP - General Family Medicine 07/30/24 Cesar Valadez MD [address] [place] [address] Consulting Physician Otolaryngology 09/19/22 Brandon Garcias MD [address] [facility] [address] [place] [address] Consulting Physician Family Medicine 03/03/23 documented as of this encounter
--- OUTSIDE RECORDS SUMMARY | 2024-12-23 11:42 | XMS_ITS | Encounter Summary ---
Author Organization [facility] Address [facility] [place] [address] Care Team Providers Care Rivet Sticker Name Role Phone Unavailable Primary Care Provider Unavailabl e Encounter Details Date Type Department Care Team (Late st Contact Info) Description 04/26/2022 Lab Requisition [facility] Care DermPath Lab [address] [facility] [place] [address] Molly Juarez MD [address] 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 Gender Identity Not on file Sexual Orientation Not on file documented as of this encounter Plan of Treatment Not on file documented as of this encounter Procedures Procedure Name Priority Date/Time Associated Diagnosis Comments DERMATOPATHOLOGY Routine 04/26/2022 12:0 0 AM ARCHITECTURAL DRAFTER documented in this encounter Results * DERMATOPATHOLOGY (04/26/2022 12:00 AM ARCHITECTURAL DRAFTER) Case Report Dermatopathology Report Case: [id number] Authorizing Provider: Molly Juarez MD Collected: 04/26/2022 12:00 AM Ordering Location: [facility] Care DermPath Lab Received: 04/26/2022 04:57 PM Pathologist: Cherie Magana MD Specimen: Skin, right arm 11/28/202 2 11:[address] [facility] DERMATOPATHOLOGY LABORATORY Final Diagnosis Specimen A. 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 DERMATOPATHOLOGY LABORATORY at [address] ARCHITECTURAL DRAFTER Clinical History Nevus vs. BCC 2 11:[address] [facility] DERMATOPATHOLOGY LABORATORY Gross Description Specimen A: Received is one formalin filled container labeled with the patient's name and designated right arm. The specimen consists of a shave biopsy measuring 7x7x1 mm. Jar 0. 2 11:[address] [facility] DERMATOPATHOLOGY LABORATORY Microscopic Description Specimen A. SKIN, right arm: There are nests of cytologically bland melanocytes within the dermis that mature with depth. 2 11:[address] [facility] DERMATOPATHOLOGY LABORATORY Disclaimer An external and internal positive and negative controls are appropriate for the histochemical, immunohistochemical and immunofluorescence stain(s) in this case (if any), except where stated explicitly. The performance characteristics of the stain(s) cited in this report were developed and its performance characteristic determined by the Dermatopathology Laboratory at [facility], directed by Dr. Wyatt Smith. These tests need not be, and therefore are not, approved by the [place] Food and Drug Administration. The tests are used for clinical purposes. Billing Codes Specimen Charges Stain Charges 46192 1 2 11:[address] [facility] DERMATOPATHOLOGY LABORATORY Embedded Images 2 11:[address] [facility] DERMATOPATHOLOGY LABORATORY Pathology/Cytolog y TISSUE SPECIMEN FROM SKIN / Unknown 04/26/2022 04/26/2022 4:57 PM ARCHITECTURAL DRAFTER us Molly Juarez MD LAB - PATHOLOGY/CYTOLOGY ORD ERABLES Final Result DERMATOPATHOLOGY LABORATORY [facility] - Department of Dermatology [address] [place] [address], [facility] [phone] documented in this encounter Visit Diagnoses Not on filedocumented in this encounter
--- OUTSIDE RECORDS SUMMARY | 2024-12-23 11:42 | XMS_ITS | Referral Summary ---
Author Organization [facility] Address [address] [place] [phone] Phone Care Team Providers Care Electronic Warfare Specialist Name Role Phone Cesar Valadez MD Unavailable [phone] Brandon Garcias MD Unavailable [phone] Jyoti Johnson DO Primary Care Provider [phone] Allergies Active Allergy Reactions Criticality Noted Date Comments Morphine Nausea only Low 07/29/2022 Following hysterectomy, pt was on IV morphine Medications multivitamin tablet Take 1 tablet by mouth daily Active fish,bora,flax oils-om3,6,9no1 (Varnell 3-6-9) 1,200 mg capsule Take 1 capsule by mouth daily Active aspirin 81 mg enteric coated tablet Take 1 tablet (81 mg total) by mouth daily Active glucosamine/cho ndr rivas A sod (glucosamine-ch ondroitin) 167-133 mg capsule Take by mouth water resources project manager before breakfast Active fexofenadine (ELIER) 180 mg tablet Take 1 tablet (180 mg total) by mouth daily as needed (allergies) 30 tablet 2 2 Active omeprazole (PriLOSEC) 20 mg capsule TAKE 1 CAPSULE BY MOUTH EVERY DAY 90 capsule 2 4 Active mupirocin (BACTROBAN) 2 % ointment Apply topically 3 (three) times a day 22 g 4 Active atorvastatin (LIPITOR) 40 mg tablet TAKE 1 TABLET BY MOUTH EVERY DAY 100 tablet 1 4 Active olmesartan-hydr ochlorothiazide (BENICAR HCT) 40-25 mg per tablet TAKE 1 TABLET BY MOUTH EVERY DAY 90 tablet 1 5 Active amLODIPine (NORVASC) 5 mg tablet TAKE 1 TABLET (5 MG TOTAL) BY MOUTH DAILY. 90 tablet 1 5 01/22/20 25 Active Active Problems Problem Noted Date Diagnosed [...] 06/07/2023 Assessment & Plan (06/07/2023 3:06 PM COMMERCIAL TECHNICIAN): Has worsened--after certain food intake, only taking [...] recommended Assessment & Plan (06/07/2023 3:04 PM COMMERCIAL TECHNICIAN): Healthy, low carbohydrate lifestyle and exercise for [...] indicated. Assessment & Plan (06/07/2023 3:02 PM COMMERCIAL TECHNICIAN): A yearly Essence Enhanced Encounter has been [...] stable. Assessment & Plan (06/07/2023 3:04 PM COMMERCIAL TECHNICIAN): BP stable in office, continues current regimen. Renal function stable. Mixed hyperlipidemia 06/09/2021 Assessment & Plan (06/07/2023 3:04 PM COMMERCIAL TECHNICIAN): Lipid panel well controlled on the Atorvastatin, [...] (03/31/2022): Added automatically from request for surgery [id number] Nasal obstruction 03/31/2022 03/26/2024 Overview (03/31/2022): Added automatically from request for surgery [id number] Chronic pansinusitis 03/29/2022 024 Assessment & Plan [...] is a risk of orbital injury and WOOD PANEL INSPECTOR injury which could result in blindness or [...] on file Legal Sex Female 7:06 PM COMMERCIAL TECHNICIAN Gender Identity Female 06/05/2021 4:03 PM COMMERCIAL TECHNICIAN Sexual Orientation Straight 06/05/2021 4: 03 PM COMMERCIAL TECHNICIAN Last Filed Vital Signs Vital Sign Reading Time Taken Comments Blood Pressure 142/62 04/28/2024 8:30 AM COMMERCIAL TECHNICIAN Pulse 74 04/28/2024 8:30 AM COMMERCIAL TECHNICIAN Temperature 36.8 C (98.2 F) 04/28/2024 8:30 AM COMMERCIAL TECHNICIAN Respiratory Rate 20 04/28/2024 8:30 AM COMMERCIAL TECHNICIAN Oxygen Saturation 97% 04/28/2024 8:30 AM COMMERCIAL TECHNICIAN Inhaled Oxygen Concentration - - Weight 90.7 kg (200 lb) 04/28/2024 8:30 AM COMMERCIAL TECHNICIAN Height 154.9 cm (5' 1) 04/28/2024 8:30 AM COMMERCIAL TECHNICIAN Body Mass Index 37.79 04/28/2024 8:30 AM COMMERCIAL TECHNICIAN Plan of Treatment Not on file Procedures Procedure Name Priority Date/Time Associated Diagnosis Comments SCREENING MAMMOGRAM BILATERAL W NASIM Schedule Routine, Read Routine (OP Routine) 06/24/2024 8:39 AM COMMERCIAL TECHNICIAN Breast cancer screening by mammogram HEPATITIS C ANTIBODY Routine 11/29/2023 8:09 AM CDT Encounter for hepatitis C screening test for low risk patient HM DEXA SCAN Routine 10/25/2023 COLONOSCOPY 12/15/2022 11:27 AM CDT from Last 3 Months or Most Recently Relevant to Health Maintenance Results * Screening Mammogram Bilateral W Nasim (06/24/2024 8:39 AM COMMERCIAL TECHNICIAN) Anatomical Region Laterality Modality Breast Bilateral Mammography Impressions 06/24/2024 11:28 AM COMMERCIAL TECHNICIAN BI-RADS ATLAS category (overall): 1 - Negative There is no mammographic evidence of malignancy. A 1 year screening mammogram is recommended. The patient has been or will be contacted. We recommend annual screening mammography for women at average risk of breast cancer beginning at age 40, based on guidelines of the [employer] [employer] (ACR Practice Parameter for the Performance of Screening and Diagnostic Mammography) and [place]. For women with and elevated risk of breast cancer, please refer to the ACR Practice Parameter for specific screening recommendations. The patient will be entered into a reminder system with a target due date of 1 year for her next screening exam. Narrative 06/24/2024 11:28 AM COMMERCIAL TECHNICIAN Screening Mammogram Bilateral W Nasim: 06/24/24 The [...] GENERAL ORDER LUIS Edited Result - Final Performing Organization Address City/State/[facility] Co de Phone Number MATTEO [address] [address] Department [place] [address] * HM DEXA SCAN (10/25/2023) Historical Provider HEALTH MAINTENANCE Final Result * COLONOSCOPY (12/15/2022 11:27 AM CDT) Anatomical Region Laterality Modality Other Narrative Procedure Note Shamar Gale, - 12/15/2022 11:27 AM CDT [facility] GI ENDOSCOPY Patient Name: Vy Munoz Procedure Date: 12/15/2022 11:27 AM Date of : 1950 Admit Type: Outpatient Age: 72 Gender: Female Attending MD: Shamar Gale D.O. Room: [facility] ENDOSCOPY ROOM 05 Note Status: Addendum Procedure: [...] The scope was passed under direct vision.The [id number] colonoscope was introduced through theanus and advanced [...] On: 12/15/2022 11:27 AM Recognized by the [employer] [employer] for promoting quality in endoscopy Addendum Number: 1 Addendum Date: 12/15/2022 12:52:39 PM Polyp is RECTAL at approx 20cm Shamar Gale D.O. 12/15/2022 12:53:11 PM Shamar Gale DO ENDOSCOPY PROCEDURES Darian jazlyn Result - Final from Last 3 Months or Most Recently Relevant to Health Maintenance Insurance [employer] Member Subscriber Plan / Payer (Ef fective 2021-Present) Name:Vy Munoz Relation to Subscriber:Self Name:Vy Munoz Payer ID:[id number] ([facility]) Type:MEDICARE RISK OTHER Address: [place] [id number] Member Subscriber Plan / Payer ( fective 2021-) Name:Vy Munoz Relation to Subscriber:Self Name:Vy Munoz Payer ID:[id number] ([facility]) Type:MEDICARE RISK OTHER Address: [address] ADVANTAGE CHOICE PPO [facility] ADVANTAGE CHOICE PPO Care Teams Electronic Warfare Specialist Relationship Specialty Start Date End Date Jyoti Johnson [address] [facility] [address] [address] PCP - General Family Medicine 07/30/24 Cesar Valadez [place] [address] Consulting Physician Otolaryngology 09/19/22 Brandon Garcias MD [address] [address] Consulting Physician Family Medicine 03/03/23
--- OUTSIDE RECORDS SUMMARY | 2024-12-23 11:42 | XMS_ITS | Clinical Summary ---
Author Organization [facility] Address [address] [place] [address] Care Team Providers Care Cloth Shearer Name Role Phone Eddie Orr MD Primary Care Provider Allergies Active Allergy Reactions Criticality Noted Date [...] Take 1 tablet by mouth daily. Active Fairview 3 1200 MG Cap Take 1 capsule [...] for preventive health examination 09/13/2012 02/14/2020 Immunizations Immunization Administration Dates Next Due Flucelvax 2 YRS+ [...] AM CDT Pulse 60 05/17/2016 12:51 PM GREETING CARD EDITOR Temperature 36.6 C (97.8 F) 10/19/2020 12:47 PM CDT Respiratory Rate - - Oxygen Saturation - - Inhaled Oxygen Concentration - - Weight 93.4 kg (206 lb) 03/15/2021 7:49 AM CDT Height 157.5 cm (5' 2) 03/15/2021 7:49 AM CDT Body Mass Index 37.68 03/15/2021 7:49 AM CDT Plan of Treatment Health Maintenance Due Date Last Done Comments Hepatitis C 02/05/1968 Annual Medicare Wellness Visit 2015 Dexa Scan (General) 2015 Zoster Vaccines (2 of 2) 09/04/2018 07/10/2018 Colorectal Cancer Screening Colonoscopy (10 Years) 06/05/2022 06/05/2012 Mammogram Screening 05/03/2023 05/03/2021 COVID-19 Vaccine (4 - 2023-2 5 season) 2024 03/08/2021, 08/03/2020, 07/13/2020 RSV Immunization or 60+ Years (1 - 1-dose 75+ series) 2025 DTaP, Tdap and Td Vaccines ( 3 - Td or Tdap) 02/12/2030 02/13/2020, 01/13/2010 Pneumococcal Vaccine: 50+ Years Completed 04/19/2019, 03/28/2018, 03/05/2018 Colorectal Cancer Screening FIT-DNA (3 Years) Discontinued 11/23/2020 Meningococcal B Vaccine Aged Out No l [...] Routine 11/23/2020 COLONOSCOPY Routine 06/05/2012 12:00 AM GREETING CARD EDITOR from Last 3 Months or Most Recently Relevant to Health Maintenance Results * MG SCREENING BOBBY DIGI (05/03/2021) Anatomical Region Laterality Modality Breast Bilateral Mammography us Marco Dugan MD MAMMO Final Resul t * COLOGUARD (SCAN) (11/23/2020) Stool specimen (specimen) 11/23/2020 Marco Dugan MD SCANNING Edited Resu lt - Final Performing Organization Address City/[facility] Co de Phone Number [facility] ONBASE * Colonoscopy (06/05/2012 12:00 AM GREETING CARD EDITOR) 06/05/2012 06/05/2012 Narrative TOUCHWORKS TO EPIC CONVERSION - 06/05/2012 12:00 AM GREETING CARD EDITOR Documented hx of procedure Procedure Note Trevon Ochoa MD - 08/23/2018 Documented hx of procedure Generic Derek Ochoa MD GI PROCEDURE ORDERABLES Final Result Performing Organization Address [facility] de Phone Number TOUCHWORKS TO EPIC CONVERSION from Last 3 Months or Most Recently Relevant to Health Maintenance [place] [id number] Care Teams Cloth Shearer Relationship Specialty Start Date End Date Eddie Orr MD [address] [address] PCP - General FAMILY PRACTICE 06/11/21
--- OUTSIDE RECORDS SUMMARY | 2024-12-23 11:42 | XMS_ITS | Clinical Summary ---
Author Organization [facility] Address [address] [facility] [address] [place] [address] Phone Care Team Providers Care Surveillance Systems Analyst Name Role Phone Cesar Valadez MD Unavailable [phone] Brandon Garcias MD Unavailable [phone] Jyoti Johnson DO Primary Care Provider [phone] Allergies Active Allergy Reactions Criticality Noted Date Comments Morphine Nausea only Low 07/29/2022 Following hysterectomy, pt was on IV morphine Medications multivitamin tablet Take 1 tablet by mouth daily Active fish,bora,flax oils-om3,6,9no1 (Conyers 3-6-9) 1,200 mg capsule Take 1 capsule by mouth daily Active aspirin 81 mg enteric coated tablet Take 1 tablet (81 mg total) by mouth daily Active glucosamine/cho ndr rivas A sod (glucosamine-ch ondroitin) 167-133 mg capsule Take by mouth manager semiconductor before breakfast Active fexofenadine (ELIER) 180 mg [...] 06/07/2023 Assessment & Plan (06/07/2023 3:06 PM SPRAY PILOT): Has worsened--after certain food intake, only taking [...] recommended Assessment & Plan (06/07/2023 3:04 PM SPRAY PILOT): Healthy, low carbohydrate lifestyle and exercise for [...] indicated. Assessment & Plan (06/07/2023 3:02 PM SPRAY PILOT): A yearly Essence Enhanced Encounter has been [...] stable. Assessment & Plan (06/07/2023 3:04 PM SPRAY PILOT): BP stable in office, continues current regimen. Renal function stable. Mixed hyperlipidemia 06/09/2021 Assessment & Plan (06/07/2023 3:04 PM SPRAY PILOT): Lipid panel well controlled on the Atorvastatin, [...] (03/31/2022): Added automatically from request for surgery [id number] Nasal obstruction 03/31/2022 03/26/2024 Overview (03/31/2022): Added automatically from request for surgery [id number] Chronic pansinusitis 03/29/2022 024 Assessment & Plan [...] is a risk of orbital injury and AVIATION ELECTRONIC WARFARE OPERATOR injury which could result in blindness or [...] x disease) Sinusitis Ear problems Tinnitus Anemia 2000 blood transfusio n at time of hysterectomy Obesity History of blood transfusion 1999 fol lowing hysterectomy Sinus congestion 07/2022 seasonal allerg ies per patient Arthritis 2018 Cataract Surgery 2020 Glaucoma 2021 not on any eye d rops pre glaucoma Fibroid Family History Medical History Relation Name Comments Arthritis Brother Jeff Anthony Hypertension Brother Jeff Anthony Hearing loss Father Debra Cazadero Heart attack Father Debra Cazadero Heart disease Father Debra Cazadero Hyperlipidemia Father Debra Cazadero Hypertension Father Debra Cazadero Arthritis Maternal Grandmother Jewel Ozzy Hearing loss Maternal Grandmother Jewel Ozzy Arthritis Mother Kerrie [place]adero Cancer Mother Kerrie Cazadero Hearing loss Mother Kerrie Cazadero Heart disease Mother Kerrie Cazadero Hyperlipidemia Mother Kerrie Cazadero Hypertension Mother Kerrie Cazadero Kidney cancer Mother Kerrie Cazadero Kidney disease Mother Kerrie Cazadero Rashes / Skin problems Mother Kerrie Cazadero Breast cancer Mother's Sister Arthritis Sister Adela Ugalde Hypertension Sister Adela Ugalde Relation Name Status Comments Brother Jeff Anthony Father Debra Anthony Maternal Grandmother Clifford Preciado Mother Kerrie Anthony Mother's Sister Sister Adela Ugalde Social History [...] on file Legal Sex Female 7:06 PM SPRAY PILOT Gender Identity Female 06/05/2021 4:03 PM SPRAY PILOT Sexual Orientation Straight 06/05/2021 4: 03 PM SPRAY PILOT Obstetrics History Para Term AB IAB SAB Ectopic Multiple Livin g Live Births 5 4 4 Date Outcome GA Total Labor Labor/2nd/3rd Weight Sex Type Anes PTL Samia A1 A5 Name Clin Term Term Term Term Last Filed Vital Signs Vital Sign Reading Time Taken Comments Blood Pressure 142/62 04/28/2024 8:30 AM SPRAY PILOT Pulse 74 04/28/2024 8:30 AM SPRAY PILOT Temperature 36.8 C (98.2 F) 04/28/2024 8:30 AM SPRAY PILOT Respiratory Rate 20 04/28/2024 8:30 AM SPRAY PILOT Oxygen Saturation 97% 04/28/2024 8:30 AM SPRAY PILOT Inhaled Oxygen Concentration - - Weight 90.7 kg (200 lb) 04/28/2024 8:30 AM SPRAY PILOT Height 154.9 cm (5' 1) 04/28/2024 8:30 AM SPRAY PILOT Body Mass Index 37.79 04/28/2024 8:30 AM SPRAY PILOT Plan of Treatment Health Maintenance Due Date Last Done Comments Hepatitis B Screening 02/05/1968 Zoster Vaccine (2 of 2) 09/04/2018 07/10/2018 Covid-19 Vaccine (2023-2 5 season) 2024 04/01/2023, 08/16/2022, 10/05/2021, Additional history exists Well Visit 65+ 12/05/2024 12/06/2023, 08/2023, 06/02/2022 Influenza Vaccine (#1) 2025 , 03/05/2022, 02/03/2022, Additional history exists Depression Screening 03/26/2025 03/26/2024, 12/06/2023, 09/25/2023, Additional [...] Read Routine (OP Routine) 06/24/2024 8:39 AM SPRAY PILOT Breast cancer screening by mammogram HEPATITIS C ANTIBODY Routine 11/29/2023 8:09 AM CDT Encounter for hepatitis C screening test for low risk patient HM DEXA SCAN Routine 10/25/2023 COLONOSCOPY 12/15/2022 11:27 AM CDT from Last 3 Months or Most Recently Relevant to Health Maintenance Results * Screening Mammogram Bilateral W Nasim (06/24/2024 8:39 AM SPRAY PILOT) Anatomical Region Laterality Modality Breast Bilateral Mammography Impressions 06/24/2024 11:28 AM SPRAY PILOT BI-RADS ATLAS category (overall): 1 - Negative There is no mammographic evidence of malignancy. A 1 year screening mammogram is recommended. The patient has been or will be contacted. We recommend annual screening mammography for women at average risk of breast cancer beginning at age 40, based on guidelines of the [place] [employer] (ACR Practice Parameter for the Performance of Screening and Diagnostic Mammography) and [place] [employer]. For women with and elevated risk of breast cancer, please refer to the ACR Practice Parameter for specific screening recommendations. The patient will be entered into a reminder system with a target due date of 1 year for her next screening exam. Narrative 06/24/2024 11:28 AM SPRAY PILOT Screening Mammogram Bilateral W Nasim: 06/24/24 The [...] There has been no suspicious change. Brandon Gacrias MD IMG MAMMO PROCEDURES Final Result * [...] LUIS Edited Result - Final MATTEO [place]ODY [address] [place] [address] * HM DEXA SCAN (10/25/2023) Historical Provider HEALTH MAINTENANCE Final Result * COLONOSCOPY (12/15/2022 11:27 AM CDT) Anatomical Region Laterality Modality Other Narrative Procedure Note Shamar Gale, - 12/15/2022 11:27 AM CDT [facility] GI ENDOSCOPY Patient Name: Vy Munoz Procedure Date: 12/15/2022 11:27 AM Date of : 1950 Admit Type: Outpatient Age: 72 Gender: Female Attending MD: Shamar Gale D.O. Room: [facility] ENDOSCOPY ROOM 05 Note Status: Addendum [...] The scope was passed under direct vision.The [id number] colonoscope was introduced through theanus and advanced [...] On: 12/15/2022 11:27 AM Recognized by the [place] [employer] for promoting quality in endoscopy Addendum Number: 1 Addendum Date: 12/15/2022 12:52:39 PM Polyp is RECTAL at approx 20cm Shamar Gale D.O. 12/15/2022 12:53:11 PM Shamar Gale DO ENDOSCOPY PROCEDURES Darian jazlyn Result - Final from Last 3 Months or Most Recently Relevant to Health Maintenance Insurance Member Subscriber Plan / Payer (Ef fective 2021-Present) Name:Vy Munoz Relation to Subscriber:Self Name:Vy Munoz Payer ID:[id number] ([facility]) Type:MEDICARE RISK OTHER Address: [place] [id number] Member Subscriber Plan / Payer (Ef fective 2021-Present) Name:Vy Munoz Relation to Subscriber:Self Name:Vy Munoz Payer ID:[id number] ([facility]) Type:MEDICARE RISK OTHER Address: [place] [id number] [facility] ADVANTAGE CHOICE O ESSENCE ADVANTAGE CHOICE PPO Care Teams Surveillance Systems Analyst Relationship Specialty Start Date End Date Jyoti Johnson DO [address] [place] [address] [address] [place] [address] PCP - General Family Medicine 07/30/24 Cesar Valadez MD [address] [place] [address] Consulting Physician Otolaryngology 09/19/22 Brandon Garcias MD [address] [facility] [address] [place] [address] Consulting Physician Family Medicine 03/03/23
--- OUTSIDE RECORDS SUMMARY | 2024-12-23 11:42 | XMS_ITS | Clinical Summary ---
Author Organization [facility] Address [address] [place] [address] Care Team Providers Care Director Television Name Role Phone Unavailable Primary Care Provider Unavailabl e Source Comments [facility],non-[facility] Affiliates and Associated Physician Practices is amultiple site organization consisting of ambulatory clinics and hospital sitesin [place], [place], [place] and [place]. This disclosure is being madepursuant to the Care Everywhere program and may not contain all information available regarding this patient. 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
--- OUTSIDE RECORDS SUMMARY | 2024-12-23 11:42 | XMS_ITS | Encounter Summary ---
Author Organization [facility] Address [facility] [facility] [place] [place] [address] Care Team Providers Care Double Surface Operator Name Role Phone Unavailable Primary Care Provider Unavailabl e Encounter Details Date Type Department Care Team (Late st Contact Info) Description 05/09/2023 Lab Requisition [facility] - DermPath Lab [address] [facility] [place] [id number] Molly Juarez MD [address] [facility] [address] [place] [address] Social History Tobacco Use Types Packs/Day Years Used Date Smoking Tobacco: Never Assessed Comments Unknown Sex and Gender Information Value Date Recorded Sex Assigned at Not on file Legal Sex Female 10:01 AM ELECTRONIC INDUSTRIAL CONTROLS MECHANIC Gender Identity Not on file Sexual Orientation Not on file documented as of this encounter Plan of Treatment Not on file documented as of this encounter Procedures Procedure Name Priority Date/Time Associated Diagnosis Comments DERMATOPATHOLOGY Routine 05/09/2023 10:2 7 AM ELECTRONIC INDUSTRIAL CONTROLS MECHANIC documented in this encounter Results * DERMATOPATHOLOGY (05/09/2023 10:27 AM ELECTRONIC INDUSTRIAL CONTROLS MECHANIC) Case Report Dermatopathology Report Case: [id number] Authorizing Provider: Molly Juarez MD Collected: 05/09/2023 10:27 AM Ordering Location: [facility] DermPath Lab Received: 05/10/2023 01:16 PM Pathologist: Mary Jane Funes MD Specimen: Skin, mid chest 1:37 PM [facility] DERMATOPATHOLOGY LABORATORY Final Diagnosis Specimen A. SKIN, mid chest: LICHEN PLANUS-LIKE KERATOSIS (BENIGN LICHENOID KERATOSIS) (L82.1) 3 1:37 PM [facility] DERMATOPATHOLOGY LABORATORY at 1336 ELECTRONIC INDUSTRIAL CONTROLS MECHANIC Clinical History R/O NMSC Irritated 1:37 PM [facility] DERMATOPATHOLOGY LABORATORY Gross Description Specimen A: Received is one formalin filled container labeled with the patient's name and designated mid chest. The specimen consists of a shave biopsy measuring 5x4x1 mm. Jar 0. 1:37 PM [facility] DERMATOPATHOLOGY LABORATORY Microscopic Description Specimen A. SKIN, mid chest: The epidermis is mildly acanthotic. There is a lichenoid infiltrate with vacuolar changes of basilar keratinocytes and scattered necrotic keratinocytes. 1:37 PM [facility] DERMATOPATHOLOGY LABORATORY Disclaimer An external and internal positive and negative controls are appropriate for the histochemical, immunohistochemical and immunofluorescence stain(s) in this case (if any), except where stated explicitly. The performance characteristics of the stain(s) cited in this report were developed and its performance characteristic determined by the Dermatopathology Laboratory at [facility], directed by Dr. Wyatt Smith. These tests need not be, and therefore are not, approved by the [place] Food and Drug Administration. The tests are used for clinical purposes. Billing Codes Specimen Charges Stain Charges 94247 1 1:37 PM [facility] DERMATOPATHOLOGY LABORATORY Embedded Images 3 1:37 PM [facility] DERMATOPATHOLOGY LABORATORY Pathology/Cytolo gy TISSUE SPECIMEN FROM SKIN / Unknown 05/09/2023 10:27 AM ELECTRONIC INDUSTRIAL CONTROLS MECHANIC 05/10/2023 1:16 PM ELECTRONIC INDUSTRIAL CONTROLS MECHANIC us Molly Juarez MD LAB - PATHOLOGY/CYTOLOGY ORD ERABLES Final Result DERMATOPATHOLOGY LABORATORY [facility] - Department of Dermatology [address], [address] [phone] documented in this encounter Visit Diagnoses Not on filedocumented in this encounter
--- OUTSIDE RECORDS SUMMARY | 2024-12-23 11:42 | XMS_ITS | Encounter Summary ---
Author Organization [facility] Address [address] [place] [address] Care Team Providers Care Small Parts Assembler Name Role Phone Marco Dugan MD Primary Care Provider [phone] Eddie Orr MD Primary Care Provider [phone] Encounter Details Date Type Department Care Team (Latest Contact Info) Description 04/10/2018 Abstract [facility] , Trevon Reed MD Social [...] on filedocumented in this encounter Care Teams Small Parts Assembler Relationship Specialty Start Date End Date Marco Dugan MD [address] [facility] [address] [place] [address] PCP - General FAMILY PRACTICE 09/19/18 06/10/21 Eddie Orr MD [address] [facility] [address] [place] [address] PCP - General FAMILY PRACTICE 06/11/21 documented as of this encounter
[2024-12-23 12:52] LABS: Hematocrit 43.9 % (37.0-47.0); Hemoglobin 14.5 g/dL (12.0-15.0); Immature Granulocyte Percent A 0.3 % (0-0.5); Lymphocytes Absolute Auto 1.19 K/mm3 (0.9-3.2); Mean Corpuscular HGB Conc 33.0 g/dl (32-36); Mean Corpuscular Hemoglobin 29.2 pg (26-34); Mean Corpuscular Volume 88.3 fl (80-100); Nucleated Red Blood Cells Absolute Auto 0.000 K/mm3 (0.0-0.012); Nucleated Red Blood Cells Perc 0.0 % (0.0-0.2); Platelet Count Result 269 k/mm3 (150-375); Red Blood Count 4.97 M/mm3 (4.2-5.4); White Blood Count 6.7 K/mm3 (4.5-10.0)
[2024-12-23 14:03] LABS: MRSA (PCR) NOT DETECTED (NOT DETECTE)
== END 2024-12-23 11:37 | disposition home or self-care (01) ==
LOC: ANHSURGERY 11:40
PROVIDERS: PCP Family Medicine; Visit Provider Orthopaedic Surgery
DX: M17.11 Unilateral primary osteoarthritis, right knee (principal); Z01.818 Encounter for other preprocedural examination
CPT/HCPCS: 80307; 85025; 87641

== ENCOUNTER 2025-01-16 02:17 | Day surgery (SDC) | payer OTHER, SELFPAY ==
[2024-12-23 11:53] VITALS: BP 144/74; PULSE 64; RESP 16; TEMP 36.6; O2SAT 96; BMI 38.0
--- NOTE | 2024-12-23 12:12 | PC.NURSE ---
Report to the Outpatient Waiting Room, entrance under the green pavilion located off [facility], at time ___8:30AM____ on date ___01/16/25__. Planned Procedure Time: ___10:30AM .? Time changes happen often and if your time is changed the preop area will call you the afternoon before. - You and your visitor will be asked to self-screen and do not enter if you have any COVID symptoms. Please call surgeon if you need to reschedule. - A mask is optional within the hospital at this time. Patients may have clear liquids (water, carbonated beverages, clear teas, apple juice) until 3 hours prior to surgery (7:30AM) with a maximum of 20 ounces. - No food from midnight until time of surgery and no smoking, or chewing tobacco (or any form of nicotine). No chewing gum, candy or mints. Take only the following medications with a SIP of water on the morning of surgery: ___AMLODIPINE DO NOT STOP ANY OF YOUR OTHER PRESCRIPTION MEDICATIONS PRIOR TO SURGERY EXCEPT THE FOLLOWING Hold all vitamins and supplements for 3 days per anesthesiologist.- LAST DOSE 01/12/25 Medications to discontinue per physician HOLD ASPIRIN 7 DAYS PRE-OP PER DR WAYNE Date to take last dose 01/08/25 Please no make-up, nail portuguese, hairspray, perfume, deodorant, or body powder the day of surgery.? No jewelry (including any body piercings) or valuables the day of surgery, leave them at home.? Please take a shower or bath the night before, or the morning of, surgery with an antibacterial soap.? Wear comfortable, loose fitting clothing.? - Jewelry must be removed prior to entering the operating room.? Rings and piercings that are not removed may be cut off. - The hospital will not accept responsibility for valuables.? - Please leave all valuables, including medications, at home the day of surgery. If you are going home after surgery, a licensed meals on wheels driver must drive you home.? - NO public transportation without another adult if you receive anesthesia. - We recommend that an adult stay with you for 24 hours following discharge. - We also recommend that you do not drive, make important decision, drink alcoholic beverages, or take any drugs that were not prescribed by your health care provider for at least 24 hours after your discharge time. Follow any additional instructions given to you from your surgeon. Telephone instructions given to ___PATIENT and asked if any additional questions and then verbalized understanding. Patient advised to call surgeon office or pre surgery nurse liaison [phone] if any additional questions.
[2025-01-16] VITALS (13 sets, daily range): BP systolic 112–143; BP diastolic 50–71; PULSE 65–88; RESP 12–20; TEMP 36.2–36.8; O2SAT 92–98
--- NOTE | ~2025-01-16 | XR_ITS ---
EXAMINATION: [id number] DATE: 01/16/2025 13:19 CDT INDICATION: Right total knee arthroplasty TECHNIQUE: 2 views right knee FINDINGS: There is a right total knee arthroplasty in expected position. Subcutaneous gas with fluid and air in the joint are consistent with recent surgery. No evidence of periprosthetic fracture. IMPRESSION: 1. Recent right total knee arthroplasty. Reviewed, dictated and finalized at location A.
--- OUTSIDE RECORDS SUMMARY | 2025-01-16 02:20 | XMS_ITS | Encounter Summary ---
Author Organization [facility] Address [address] [place] [address] Care Team Providers Care Photographic Machine Operator Name Role Phone Cesar Valadez MD Unavailable [phone] Brandon Garcias MD Unavailable [phone] Brandon Garcias MD Primary Care Provider [phone] Jyoti Johnson DO Primary Care Provider [phone] Encounter Details Date Type Department Care Team (Late st Contact Info) Description 05/14/2024 Telephone [facility] Primary Care at [address] [address] Brandon Garcias MD [address] [place] [address] [address] [place] [address] Social History Tobacco Use Types [...] on file Legal Sex Female 7:06 PM GRIZZLY WORKER Gender Identity Female 06/05/2021 4:03 PM GRIZZLY WORKER Sexual Orientation Straight 06/05/2021 4: 03 PM GRIZZLY WORKER documented as of this encounter Plan of Treatment Not on file documented as of this encounter Visit Diagnoses Not on filedocumented in this encounter Care Teams Photographic Machine Operator Relationship Specialty Start Date End Date Brandon Garcias MD [address] [facility] [address] [place] [address] PCP - General Family Medicine 05/19/23 07/29/24 Jyoti Johnson DO [address] [place] [address] [address] [place] [address] PCP - General Family Medicine 07/30/24 Cesar Valadez MD [address] [place] [address] Consulting Physician Otolaryngology 09/19/22 Brandon Garcias MD [address] [facility] [address] [place] [address] Consulting Physician Family Medicine 03/03/23 documented as of this encounter
--- OUTSIDE RECORDS SUMMARY | 2025-01-16 02:20 | XMS_ITS | Encounter Summary ---
Author Organization [facility] Address [facility] [facility] [place] [address] Care Team Providers Care Mohs Surgeon/General Dermatologist Name Role Phone Unavailable Primary Care Provider Unavailabl e Encounter Details Date Type Department Care Team (Late st Contact Info) Description 04/26/2022 Lab Requisition [facility] Care DermPath Lab [address] [facility] [place] [address] Molly Juarez MD [address] [facility] [address] [place] [address] Social History Tobacco Use Types Packs/Day Years Used Date Smoking Tobacco: Never Assessed Comments Unknown Sex and Gender Information Value Date Recorded Sex Assigned at Not on file Legal Sex Female 10:01 AM COMMISSIONED SALES ASSOCIATE Gender Identity Not on file Sexual Orientation Not on file documented as of this encounter Plan of Treatment Not on file documented as of this encounter Procedures Procedure Name Priority Date/Time Associated Diagnosis Comments DERMATOPATHOLOGY Routine 04/26/2022 12:0 0 AM COMMISSIONED SALES ASSOCIATE documented in this encounter Results * DERMATOPATHOLOGY (04/26/2022 12:00 AM COMMISSIONED SALES ASSOCIATE) Case Report Dermatopathology Report Case: [id number] Authorizing Provider: Molly Juarez MD Collected: 04/26/2022 12:00 AM Ordering Location: [facility] Care DermPath Lab Received: 04/26/2022 04:57 PM Pathologist: Cherie Magana MD Specimen: Skin, right arm 11/28/202 2 11:30 AM [facility] DERMATOPATHOLOGY LABORATORY Final Diagnosis Specimen A. SKIN, right arm: INTRADERMAL MELANOCYTIC NEVUS (D22.61) 2 11:30 AM [facility] DERMATOPATHOLOGY LABORATORY at [address] COMMISSIONED SALES ASSOCIATE Clinical History Nevus vs. BCC 2 11:30 AM [facility] DERMATOPATHOLOGY LABORATORY Gross Description Specimen A: Received is one formalin filled container labeled with the patient's name and designated right arm. The specimen consists of a shave biopsy measuring 7x7x1 mm. Jar 0. 2 11:30 AM [facility] DERMATOPATHOLOGY LABORATORY Microscopic Description Specimen A. SKIN, right arm: There are nests of cytologically bland melanocytes within the dermis that mature with depth. 2 11:30 AM [facility] DERMATOPATHOLOGY LABORATORY Disclaimer An external and internal positive and negative controls are appropriate for the histochemical, immunohistochemical and immunofluorescence stain(s) in this case (if any), except where stated explicitly. The performance characteristics of the stain(s) cited in this report were developed and its performance characteristic determined by the Dermatopathology Laboratory at [facility], directed by Dr. Wyatt Smith. These tests need not be, and therefore are not, approved by the [place] Food and Drug Administration. The tests are used for clinical purposes. Billing Codes Specimen Charges Stain Charges 37640 1 2 11:30 AM [facility] DERMATOPATHOLOGY LABORATORY Embedded Images 2 11:30 AM [facility] DERMATOPATHOLOGY LABORATORY Pathology/Cytolog y TISSUE SPECIMEN FROM SKIN / Unknown 04/26/2022 04/26/2022 4:57 PM COMMISSIONED SALES ASSOCIATE us Molly Juarez MD LAB - PATHOLOGY/CYTOLOGY ORD ERABLES Final Result DERMATOPATHOLOGY LABORATORY [facility] - Department of Dermatology [address] [place] [address], [facility] [phone] documented in this encounter Visit Diagnoses Not on filedocumented in this encounter
--- OUTSIDE RECORDS SUMMARY | 2025-01-16 02:20 | XMS_ITS | Clinical Summary ---
Author Organization [facility] Address [address] [facility] [address] [place] [address] Phone Care Team Providers Care Educational Fundraising Director Name Role Phone Cesar Valadez MD Unavailable [phone] Brandon Garcias MD Unavailable [phone] Jyoti Johnson DO Primary Care Provider [phone] Allergies Active Allergy Reactions Criticality Noted Date Comments Morphine Nausea only Low 07/29/2022 Following hysterectomy, pt was on IV morphine Medications multivitamin tablet Take 1 tablet by mouth daily Active fish,bora,flax oils-om3,6,9no1 (Bath 3-6-9) 1,200 mg capsule Take 1 capsule by mouth daily Active aspirin 81 mg enteric coated tablet Take 1 tablet (81 mg total) by mouth daily Active glucosamine/cho ndr rivas A sod (glucosamine-ch ondroitin) 167-133 mg capsule Take by mouth early childhood assistant before breakfast Active fexofenadine (ELIER) 180 mg [...] 06/07/2023 Assessment & Plan (06/07/2023 3:06 PM PLASTER PATTERNMAKER): Has worsened--after certain food intake, only taking [...] recommended Assessment & Plan (06/07/2023 3:04 PM PLASTER PATTERNMAKER): Healthy, low carbohydrate lifestyle and exercise for [...] indicated. Assessment & Plan (06/07/2023 3:02 PM PLASTER PATTERNMAKER): A yearly Essence Enhanced Encounter has been [...] stable. Assessment & Plan (06/07/2023 3:04 PM PLASTER PATTERNMAKER): BP stable in office, continues current regimen. Renal function stable. Mixed hyperlipidemia 06/09/2021 Assessment & Plan (06/07/2023 3:04 PM PLASTER PATTERNMAKER): Lipid panel well controlled on the Atorvastatin, [...] (03/31/2022): Added automatically from request for surgery [id number] Nasal obstruction 03/31/2022 03/26/2024 Overview (03/31/2022): Added automatically from request for surgery [id number] Chronic pansinusitis 03/29/2022 024 Assessment & Plan [...] is a risk of orbital injury and WOOLEN SUITING SHRINKER injury which could result in blindness or [...] Brother Jeff Anthony Hearing loss Father Debra [place] Heart attack Father Debra [place] Heart disease Father Debra [place] Hyperlipidemia Father Debra [place] Hypertension Father Debra [place] Arthritis Maternal Grandmother Jewel [place] Hearing loss Maternal Grandmother Jewel [place] Arthritis Mother Kerrie [place] Cancer Mother Kerrie [place] Hearing loss Mother Kerrie [place] Heart disease Mother Kerrie [place] Hyperlipidemia Mother Kerrie [place] Hypertension Mother Kerrie [place] Kidney cancer Mother Kerrie [place] Kidney disease Mother Kerrie [place] Rashes / Skin problems Mother Kerrie [place] Breast cancer Mother's Sister Arthritis Sister Adela [...] on file Legal Sex Female 7:06 PM PLASTER PATTERNMAKER Gender Identity Female 06/05/2021 4:03 PM PLASTER PATTERNMAKER Sexual Orientation Straight 06/05/2021 4: 03 PM PLASTER PATTERNMAKER Obstetrics History Para Term AB IAB SAB Ectopic Multiple Livin g Live Births 5 4 4 Date Outcome GA Total Labor Labor/2nd/3rd Weight Sex Type Anes PTL Samia A1 A5 Name Clin Term Term Term Term Last Filed Vital Signs Vital Sign Reading Time Taken Comments Blood Pressure 142/62 04/28/2024 8:30 AM PLASTER PATTERNMAKER Pulse 74 04/28/2024 8:30 AM PLASTER PATTERNMAKER Temperature 36.8 C (98.2 F) 04/28/2024 8:30 AM PLASTER PATTERNMAKER Respiratory Rate 20 04/28/2024 8:30 AM PLASTER PATTERNMAKER Oxygen Saturation 97% 04/28/2024 8:30 AM PLASTER PATTERNMAKER Inhaled Oxygen Concentration - - Weight 90.7 kg (200 lb) 04/28/2024 8:30 AM PLASTER PATTERNMAKER Height 154.9 cm (5' 1) 04/28/2024 8:30 AM PLASTER PATTERNMAKER Body Mass Index 37.79 04/28/2024 8:30 AM PLASTER PATTERNMAKER Plan of Treatment Health Maintenance Due Date [...] Read Routine (OP Routine) 06/24/2024 8:39 AM PLASTER PATTERNMAKER Breast cancer screening by mammogram HEPATITIS C ANTIBODY Routine 11/29/2023 8:09 AM CDT Encounter for hepatitis C screening test for low risk patient HM DEXA SCAN Routine 10/25/2023 COLONOSCOPY 12/15/2022 11:27 AM CDT from Last 3 Months or Most Recently Relevant to Health Maintenance Results * Screening Mammogram Bilateral W Nasim (06/24/2024 8:39 AM PLASTER PATTERNMAKER) Anatomical Region Laterality Modality Breast Bilateral Mammography Impressions 06/24/2024 11:28 AM PLASTER PATTERNMAKER BI-RADS ATLAS category (overall): 1 - Negative There is no mammographic evidence of malignancy. A 1 year screening mammogram is recommended. The patient has been or will be contacted. We recommend annual screening mammography for women at average risk of breast cancer beginning at age 40, based on guidelines of the [place] [employer] (ACR Practice Parameter for the Performance of Screening and Diagnostic Mammography) and [place] [employer]. For women with and elevated risk of breast cancer, please refer to the ACR Practice Parameter for specific screening recommendations. The patient will be entered into a reminder system with a target due date of 1 year for her next screening exam. Narrative 06/24/2024 11:28 AM PLASTER PATTERNMAKER Screening Mammogram Bilateral W Nasim: 06/24/24 The [...] LUIS Edited Result - Final MATTEO MOODY [id number] Department [place] [address] * HM DEXA SCAN (10/25/2023) Historical Provider HEALTH MAINTENANCE Final Result * COLONOSCOPY (12/15/2022 11:27 AM CDT) Anatomical Region Laterality Modality Other Narrative Procedure Note Shamar Gale, - 12/15/2022 11:27 AM CDT [facility] ENDOSCOPY Patient Name: Vy Munoz Procedure Date: 12/15/2022 11:27 AM Date of : 1950 Admit Type: Outpatient Age: 72 Gender: Female Attending MD: Shamar Gale D.O. Room: [facility] ENDOSCOPY ROOM 05 Note Status: Addendum Procedure: [...] The scope was passed under direct vision.The CF-[id number] colonoscope was introduced through theanus and advanced [...] On: 12/15/2022 11:27 AM Recognized by the [place] [employer] for promoting quality [...] Relation to Subscriber:Self Name:Vy Munoz Payer ID:[id number] ([facility]) Type:MEDICARE RISK OTHER Address: [place] [id number] Member Subscriber Plan / Payer (Ef fective 2021-Present) Name:Vy Munoz Relation to Subscriber:Self Name:Vy Munoz Payer ID:[id number] ([facility]) Type:MEDICARE RISK OTHER Address: [place] [id number] [facility] ADVANTAGE CHOICE O [employer] ADVANTAGE CHOICE PPO Care Teams Educational Fundraising Director Relationship Specialty Start Date End Date Jyoti Johnson DO [address] [place] [address] [address] [place] [address] PCP - General Family Medicine 07/30/24 Cesar Valadez MD [address] [place] [address] Consulting Physician Otolaryngology 09/19/22 Brandon Garcias MD [address] [facility] [address] [place] [address] Consulting Physician Family Medicine 03/03/23
--- OUTSIDE RECORDS SUMMARY | 2025-01-16 02:20 | XMS_ITS | Clinical Summary ---
Author Organization [facility] Address [address] [place] [address] Care Team Providers Care Truck Driver Instructor Name Role Phone Eddie Orr MD Primary Care Provider [phone] Allergies Active Allergy Reactions Criticality Noted Date [...] Take 1 tablet by mouth daily. Active [place] 3 1200 MG Cap Take 1 capsule [...] AM CDT Pulse 60 05/17/2016 12:51 PM EDGE BANDER OPERATOR Temperature 36.6 C (97.8 F) 10/19/2020 12:47 [...] Routine 11/23/2020 COLONOSCOPY Routine 06/05/2012 12:00 AM EDGE BANDER OPERATOR from Last 3 Months or Most Recently Relevant to Health Maintenance Results * MG SCREENING BOBBY DIGI (05/03/2021) Anatomical Region Laterality Modality Breast Bilateral Mammography us Marco Dugan MD MAMMO Final Resul t * COLOGUARD (SCAN) (11/23/2020) Stool specimen (specimen) 11/23/2020 Marco Dugan MD SCANNING Edited Resu lt - Final Performing Organization Address City/[facility] Co de Phone Number [facility] ONBASE * Colonoscopy (06/05/2012 12:00 AM EDGE BANDER OPERATOR) 06/05/2012 06/05/2012 Narrative TOUCHWORKS TO EPIC CONVERSION - 06/05/2012 12:00 AM EDGE BANDER OPERATOR Documented hx of procedure Procedure Note Trevon Ochoa MD - 08/23/2018 Documented hx of procedure Generic Derek Ochoa MD GI PROCEDURE ORDERABLES Final Result Performing Organization Address [facility] de Phone Number TOUCHWORKS TO EPIC CONVERSION from Last 3 Months or Most Recently Relevant to Health [place] [id number] Care Teams Truck Driver Instructor Relationship Specialty Start Date End Date Eddie Orr MD [address] [address] PCP - General FAMILY PRACTICE 06/11/21
--- OUTSIDE RECORDS SUMMARY | 2025-01-16 02:20 | XMS_ITS | Clinical Summary ---
Author Organization [facility] Address [address] [place] [address] Care Team Providers Care Grocery Clerk Selling Name Role Phone Unavailable Primary Care Provider Unavailabl e Source Comments [facility],non-ssm rehab Affiliates and Associated Physician Practices is amultiple site organization consisting of ambulatory clinics and hospital sitesin [place], [place], [place] and [place]. This disclosure is being madepursuant to the Care Everywhere program and may not contain all information available regarding this patient. Last updated 18.[facility] Social History Tobacco Use Types Packs/Day Years Used Date Smoking Tobacco: Never Assessed Comments Unknown Sex and Gender Information Value Date Recorded Sex Assigned at Not on file Legal Sex Female 10:01 AM SUPERVISOR HEAT TREATING Gender Identity Not on file Sexual Orientation [...]
--- OUTSIDE RECORDS SUMMARY | 2025-01-16 02:20 | XMS_ITS | Encounter Summary ---
Author Organization [facility] Address [address] [place] [address] Care Team Providers Care Snake Charmer Name Role Phone Marco Dugan MD Primary Care Provider [phone] Eddie Orr MD Primary Care Provider [phone] Encounter Details Date Type Department Care Team (Latest Contact Info) Description 04/10/2018 Abstract [facility] , Trevon Reed MD Social [...] on filedocumented in this encounter Care Teams Snake Charmer Relationship Specialty Start Date End Date Marco Dugan MD [address] [facility] [address] [place] [address] PCP - General FAMILY PRACTICE 09/19/18 06/10/21 Eddie Orr MD [address] [facility] [address] [place] [address] PCP - General FAMILY PRACTICE 06/11/21 documented as of this encounter
--- OUTSIDE RECORDS SUMMARY | 2025-01-16 02:20 | XMS_ITS | Patient Health Record ---
Author Organization [facility] Address [address] [place], [place] [address] Care Team Providers Care Business Planning Manager Name Role Phone LADAN DELANEY Unavailable [phone] KaileeMarco Unavailable Unavailable Reason For Referral No Information Medications Medication SIG (Take, Route, Frequency, Duration) Notes Start Date End Date Status hydrochlorothiazide 12.5 MG / lisinopril 20 MG Oral Tablet ORAL hydrochlorothiazide 12.5 MG / lisinopril 20 MG Oral TabletOriginal Medicationhydrochlorothiazide 12.5 MG / lisinopril 20 MG Oral Tablet *Reorder from [employer] for eRx and Interaction Alerts* 014 Active montelukast 10 MG Oral Tablet ORAL montelukast 10 MG Oral TabletOriginal Medicationmontelukast 10 MG Oral Tablet *Reorder from [facility] for eRx and Interaction Alerts* 014 Active Plan Of Treatment No Information Insurance Providers Payer Name Payer Address Payer Phone Subscriber Number Group Number Insured Name Patient Relationship to Insured Coverage Start Date Coverage End Date [employer]. [address] [place] [id number] CYRUS WILSON Self - patient is the insured
--- OUTSIDE RECORDS SUMMARY | 2025-01-16 02:20 | XMS_ITS | Encounter Summary ---
Author Organization [facility] Address [facility] [place] [address] Care Team Providers Care Hydrogenation Still Operator Name Role Phone Unavailable Primary Care Provider Unavailabl e Encounter Details Date Type Department Care Team (Late st Contact Info) Description 05/09/2023 Lab Requisition [facility] - DermPath Lab [address] [facility] [place] [id number] Molly Juarez MD [address] [facility] [address] [place] [address] Social History Tobacco Use Types Packs/Day Years Used Date Smoking Tobacco: Never Assessed Comments Unknown Sex and Gender Information Value Date Recorded Sex Assigned at Not on file Legal Sex 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 Gender Identity Not on file Sexual Orientation Not on file documented as of this encounter Plan of Treatment Not on file documented as of this encounter Procedures Procedure Name Priority Date/Time Associated Diagnosis Comments DERMATOPATHOLOGY Routine 05/09/2023 10:2 7 AM LASER ENGRAVER documented in this encounter Results * DERMATOPATHOLOGY (05/09/2023 10:27 AM LASER ENGRAVER) Case Report Dermatopathology Report Case: [id number] Authorizing Provider: Molly Juarez MD Collected: 05/09/2023 10:27 AM Ordering Location: [facility] DermPath Lab Received: 05/10/2023 01:16 PM Pathologist: Mary Jane Funes MD Specimen: Skin, mid chest 1:37 PM [facility] DERMATOPATHOLOGY LABORATORY Final Diagnosis Specimen A. SKIN, mid chest: LICHEN PLANUS-LIKE KERATOSIS (BENIGN LICHENOID KERATOSIS) (L82.1) 3 1:37 PM [facility] DERMATOPATHOLOGY LABORATORY at [address] LASER ENGRAVER Clinical History R/O NMSC Irritated 1:37 PM [facility] DERMATOPATHOLOGY LABORATORY Gross Description Specimen A: Received is one formalin filled container labeled with the patient's name and designated mid chest. The specimen consists of a shave biopsy measuring 5x4x1 mm. Jar 0. 1:37 PM [facility] DERMATOPATHOLOGY LABORATORY Microscopic Description Specimen A. SKIN, mid chest: The epidermis is mildly acanthotic. There is a lichenoid infiltrate with vacuolar changes of basilar keratinocytes and scattered necrotic keratinocytes. 1:37 PM [facility] DERMATOPATHOLOGY LABORATORY Disclaimer An external and internal positive and negative controls are appropriate for the histochemical, immunohistochemical and immunofluorescence stain(s) in this case (if any), except where stated explicitly. The performance characteristics of the stain(s) cited in this report were developed and its performance characteristic determined by the Dermatopathology Laboratory at [facility], directed by Dr. Wyatt Smith. These tests need not be, and therefore are not, approved by the [place] Food and Drug Administration. The tests are used for clinical purposes. Billing Codes Specimen Charges Stain Charges 88460 1 1:37 PM [facility] DERMATOPATHOLOGY LABORATORY Embedded Images 3 1:37 PM [facility] DERMATOPATHOLOGY LABORATORY Pathology/Cytolo gy TISSUE SPECIMEN FROM SKIN / Unknown 05/09/2023 10:27 AM LASER ENGRAVER 05/10/2023 1:16 PM LASER ENGRAVER us Molly Juarez MD LAB - PATHOLOGY/CYTOLOGY ORD ERABLES Final Result DERMATOPATHOLOGY LABORATORY [facility] - Department of Dermatology [address], [address] [phone] documented in this encounter Visit Diagnoses Not on filedocumented in this encounter
[2025-01-16] MEDS: LACTATED RINGERS 1,000 ML 30 ML IV CONT ×2 (09:33→12:45)
[2025-01-16] MEDS: ACETAMINOPHEN 500 MG TABLET 1000 MG PO (09:35)
[2025-01-16] MEDS: TRANEXAMIC ACID 1,000MG/ISO100 1,000 MG/100 ML BAG 200 MG IVPB (09:39)
--- NOTE | 2025-01-16 09:58 | WPDHPUPDATE1 ---
History and Physical Update Update Date/Time: 01/16/25 09:58 History and Physical has been reviewed, including an updated exam of the patient. There are NO changes in the patient's condition. Risks, benefits, and alternatives have been discussed and questions answered. Patient agrees to proceed with procedure.
--- NOTE | 2025-01-16 10:02 | WPDANESEPPF ---
Anes - Initial Pre Proc Eval Procedure: Operation Date: 01/16/25 10:30 Proposed Procedures p Right Total Knee Arthroplasty - Akin Yip MD Date/Time: 01/16/25 10:02 Surgeon: Akin Yip MD Pre Op Diagnosis: Prim O A Rt Knee Patient Data Age: 74 Gender: F Height: 1.57 m Weight: 93.2 kg Last Vital Signs Temp 98.3 F 01/16/25 08:23 Pulse 65 01/16/25 08:23 Resp 18 01/16/25 08:23 BP 143/69 H 01/16/25 08:23 Pulse Ox 97 01/16/25 08:23 O2 Del Method Room Air 01/16/25 08:23 Allergies Allergy/AdvReac Type Severity Reaction Status Date / Time morphine AdvReac Unknown Nausea Verified 01/16/25 09:53 Home Medications ?Medication ?Instructions ?Recorded ?Confirmed ?Type aspirin 81 mg tablet,delayed 81 mg PO DAILY 07/04/24 01/16/25 History release (Adult Aspirin Regimen) cyclosporine 0.09 % eye drops in a 1 drp EACH EYE Q12H 07/04/24 01/16/25 History dropperette multivitamin 1 tablet PO DAILY 07/04/24 01/16/25 History fexofenadine 180 mg tablet 180 mg PO DAILY PRN sinus symptoms 08/20/24 01/16/25 History glucosamine 125 mg-chondroitn 100 1 tablet PO BID 08/20/24 01/16/25 History mg-cartilg 40 mg-colagn 10 mg tablet omega-3 fatty acids 1,250 mg 1,250 mg PO DAILY 08/20/24 01/16/25 History capsule omeprazole 20 mg capsule,delayed 20 mg PO DAILY 08/20/24 01/16/25 History release atorvastatin 40 mg tablet (Lipitor) 40 mg PO DAILY #90 tabs 10/21/24 01/16/25 Rx amlodipine 5 mg tablet See Rx Instructions .Route 11/11/24 01/16/25 Rx .COMPLEX #90 tabs olmesartan 40 See Rx Instructions .Route 11/11/24 01/16/25 Rx mg-hydrochlorothiazide 25 mg tablet .COMPLEX #90 tabs acetaminophen 500 mg tablet 1,000 mg PO Q6H PRN pain 12/23/24 01/16/25 History (Acetaminophen Pain Relief) vit C 250 mg-vit E 90 mg-zinc 40 1 tablet PO BID 12/23/24 01/16/25 History mg-copper 1 lc-kzfqta-mydwcz capsule (PreserVision AREDS-2) Laboratory Tests 01/16/25 09:32 Blood Type Pending Antibody Screen Pending Patient hx anesthesia problems: none Family hx anesthesia problems: none Results Review: All pre-operative results and documents have been reviewed as part of the pre-operative evaluation. [facility] Past Medical History Medical History History of metal allergy History of bruising easily History of blood transfusion Glaucoma Fibroid Ear problems Cataract Anemia Arthritis IBS (irritable bowel syndrome) GERD (gastroesophageal reflux disease) Hypertension High cholesterol Congestion of nasal sinus Vision changes Weight gain Right knee pain Surgical History Surgical History H/O: hysterectomy Hx of cataract surgery B eyes, 2020, Dr. Reza Gale Family History Family History Other Cancer of kidney Family history of arthritis Family history of cardiovascular disease Family history of malignant neoplasm Heart disease High cholesterol Hypertension Social History Social History Smoking status: Never smoker Alcohol intake: current Alcohol use details: 2-3 per month Substance use: never Living arrangements: with family Additional living arrangements comments: [facility] Gender identity (if verbalized by the patient): Female Spiritual care concerns: No Anes - Eval Final PreProcedure Day of Procedure 01/16/25 10:02 Patient weight: obese Lungs: normal air movement Airway: Mallampati scale class II Neurological: alert and oriented Last oral intake: >/= 8 hours ASA classification: III Emergent: no Anesthetic plan: proceed Anesthesia type and monitoring: general ETT and standard monitoring Results Review: All pre-operative results and documents have been reviewed as part of the pre-operative evaluation. HTN, hyperlipidemia, active overall despite knee pain, can walk 1-2 fos without cp or sob. Informed Consent: The patient's anesthetic plan and its attendant risks and benefits were discussed with the patient/family/POA. Questions were solicited and answers provided to the satisfaction of the patient/family/POA.
[2025-01-16] MEDS: ceFAZolin 2 GM in SODIUM CHLORIDE 0.9% IV 50 ML 100 ML IVPB ×2 (10:25→17:56)
[2025-01-16] MEDS: SODIUM CHLORIDE 0.9% IV 38.7 ML, ROPivacaine HCL 1% 200 MG, KETOROLAC INJ (*BKC) 15 MG,... INFILTRATE (10:44)
[2025-01-16] MEDS: TRANEXAMIC ACID 1,000 MG/10 ML AMPUL 1000 MG IV PUSH (12:07)
--- NOTE | 2025-01-16 13:09 | W.PM.PROC2 ---
Procedure Note - Detailed Date of Procedure 01/16/25 Pre-op Diagnosis Right knee degenerative arthritis. Post-op Diagnosis Same Procedure Performed Calipered, kinematically aligned total knee replacement right knee. Surgeon Akin Yip MD Anesthesia General Findings According to the calipered kinematic alignment principles, the knee was balanced by the following verification checks incorporating 6 caliper measurements, using an insert goniometer to select the insert thickness, and adjusting the tibial resection following the kinematic alignment algorithm (see figure 160.10 published in [employer] [facility] chapter on kinematic alignment total knee arthroplasty.) The steps verified the femoral and tibial components were kinematically aligned coincident to the patient's pre arthritic joint lines, which closely restored the bishop paiute tibial compartment forces and ligament laxities without ligament release. The [employer] SperiKA knee, designed specifically for kinematic alignment, fit optimally. Severe patellofemoral wear. Excellent patellar tracking. The record of verification checks were documented and scanned into the chart. Distal Femoral Resection: Distal Medial 6 mm(cartilage worn), Distal Lateral 8 mm Target thickness of 8mm Unworn, 6mm Worn (No Cartilage). Posterior Femoral Resection: Posterior Medial 8 mm , Posterior Lateral 7 mm. Target thickness of 7mm Unworn, 5mm Worn (No Cartilage). Description of Procedure General anesthesia was administered. A well-padded tourniquet was placed high on the thigh. The limb was prepped and draped in the usual sterile fashion. The limb was exsanguinated and the tourniquet inflated to 300 mmHg during exposure and cementation. A longitudinal incision was created over the midline of the knee. Sharp dissection was taken through subcutaneous tissues. Electrocautery was used for hemostasis. A trivector approach to the knee joint was performed. The ACL, anterior horns of the menisci, and fat pad were excised, and a subperiosteal dissection was carried along the posterior medial border of the tibia. Starting midway between the top of the notch in the anterior femoral cortex, I drilled a 9 mm diameter hole parallel to the anterior cortex to minimize flexion of the femoral component and promote patella tracking. I verified the existence of a 5-10 mm bone bridge between the posterior aspect of the hole and the anterior limit of the intercondylar notch. An intraosseous positioning lucy was inserted 10 cm into the femur perpendicular to the distal joint line and parallel to the anterior cortex. I used a distal femoral referencing guide that compensated 2 mm when the cartilage was worn on the distal medial femoral condyle, and 2 mm when the cartilage was worn on the distal lateral femoral condyle. The basis for setting the distal and posterior femoral resection guide is knowing that the varus and valgus grade II to IV Kellegren-Fortunato osteoarthritic knees have negligible bone wear at 0? and 90? and that the mean full-thickness cartilage wear approximates 2 mm. I measured the thickness of distal femoral resections with a caliper to +/- 0.5 mm. The thickness of each resection was adjusted to match the thickness of the respective condyle of the femoral component within 0.5 mm of target after compensating for cartilage wear and kerf. When the distal resection was 1-2 mm too thin, a recut guide was used to adjust the cut. When the distal resection was too thick, a 1 or 2 mm thick washer was fixed to the back of the 4-in-1 chamfer block to kellie a corrective gap between the femoral component and distal femur. I set posterior femoral referencing guide at 0? orientation to position the pin holes for the 4 in 1 chamfer block. The jessika wing measured the width of the distal femoral resection and selected the size of the 4 in 1 chamfer block and femoral component. The AP sizer confirmed the size. I measured the thickness of the posterior femoral resections with a caliper before making the anterior and chamfer cuts. I adjusted the thicknesses of each resection to match the thickness of the respective condyle of the femoral component within +/-0.5 mm after compensating for cartilage wear and curve. When a posterior resection femoral resection was 1-2 mm too thick or thin a corrective correction was made by shifting or rotating the 4 in 1 chamfer block as needed. The chamfer block was secured in the correct position with compression screws. The anterior and chamfer femoral resections were made. These caliper measurements and corrections verified that the femoral component was set coincident with the patient's pre-arthritic distal and posterior femoral joint lines. I removed all the medial and lateral femoral and tibial osteophytes to restore the pre arthritic length of the medial and lateral collateral ligaments. I negrita AP lines along the major axis of the lateral tibial plateau in between the tibial spines which identified the flexion extension plane of the knee. A conventional extramedullary tibial resection guide was applied to the ankle. An jessika wing was placed medially in the saw slot. The varus valgus angle of the tibial resection guide was adjusted until the guide paralleled the proximal tibial articular surface after compensating for cartilage and bone wear. The slope of flexion extension angle of the tibial resection guide was adjusted until the jessika wing paralleled the slope of the medial tibia after compensating for wear. The AP axis of the tibial resection guide was adjusted parallel to the two lines. The proximal tibia was resected, partially releasing the insertion of the posterior cruciate ligament. The thickness of the medial and lateral lateral tibial condyle was measured at the base of the tibial spines. I visually verified the slope of the medial border of the resection was parallel to the patient's pre arthritic slope after compensating for cartilage and bone wear. I removed the remnants of the posterior horns of the menisci and posterior osteophytes and cauterized the inferior lateral genicular vessels. The Aquamantys bipolar device was also used to for additional hemostasis. When the knee had a preoperative flexion contracture of 20? or more I teased the capsule off the posterior femur with a curved 3 quarter-inch osteotome. I administered the posterior femoral periosteal injection by delivering 10 cc using a 20 gauge spinal needle at the most medial and 10 cc at the most lateral femoral spur surface which reduced the risk of injury to the posterior neurovascular structures. I followed 6 options in a decision tree to fine tune the varus valgus and posterior slope orientation of the tibial component to restore the patient's pre arthritic tibial joint line and limb alignment. First, I adjusted the varus-valgus orientation of the proximal tibia resection working in 1 degree to 2 degree increments until there was negligible medial and lateral lift off of the distal femoral and proximal tibial resection from the spacer block during a varus valgus laxity assessment in extension. I selected the largest anatomic shape trial tibial base plate that fit within the cortical boundary of the proximal tibial resection. The base plate was best fit parallel to the cortical boundary which set the Internal-external orientation of the anterior to posterior and medial to lateral positions. The best fit method set the AP axis of the tibial base plate and insert parallel to the flexion extension plane of the pre arthritic knee. I pinned the trial tibial base plate, prepared the cruciate slot, and fixed the base plate to the tibia with the cruciate stem. I inserted the trial femoral component. The knee was placed in full extension. Varus valgus laxity is of the knee with trial components were assessed. When asymmetric laxity was observed a 1-2 degree varus or valgus recut guide was used to fine tune the tibial resection until the laxity was 1 degree or less in full extension like the bishop paiute knee. The following steps determined the optimal insert thickness within +/-1 mm. First I inserted an insert goniometer that matched the thickness of the spacer block. I reduced the patella and then with the knee in maximum extension, I verified the knee hyperextended a few degrees and had negligible varus valgus laxity, like the pre arthritic knee. Next, I measured the external tibial orientation which was the angle the insert goniometer intersected the sagittal line on the medial condyle of the femoral trial component. Then with the knee in 15-30 degrees flexion I verified a 3-4 mm gap in the lateral compartment and no gap in the medial compartment during a 2nd varus valgus laxity test. Next, I placed the knee in 90? of flexion and the foot resting on the operating table and measured the internal tibial orientation. I repeated the steps until I identified the insert thickness that provided the highest external tibia orientation in extension and the highest internal tibial orientation at 90? flexion without anterior lift-off of the insert from the tibial base plate. The insert with this thickness was implanted. I applied a posterior drawer test with the tibia distracted by gravity and verified no posterior subluxation of the tibia relative to the femur. The thickness of the bishop paiute patella was measured with a caliper. The patella was resected using the oscillating saw. The best fitting anatomic patella button was selected. The fixation holes were drilled. When the patella and patella buttons combined thickness was thicker than the bishop paiute patella, the patella was recut. The patella remained centered on the trochlea and tracked well throughout the entire arc of flexion and extension. I used pulse lavage to clean the bony surfaces of debris and dried bone. I cemented the tibial, femoral, and patellar components using 1 bag of methylmethacrylate with Gentamycin, then rechecked the stability at full extension, 15-30 degrees, and 90? flexion and verified pentecostal of the entire arc of motion of the knee. The circulating nurse confirmed the sponge and needle counts were correct. I used pulse lavage to rinse the joint and wound. The extensor mechanism was closed with interrupted #1 Vicryl suture and #1 running Stratafix suture. The subcutaneous layer was closed with interrupted #1 Vicryl suture followed by 2-0 Stratafix and 3-0 Stratafix. Steri-Strips placed on the skin. Silver impregnated occlusive dressing applied to the wound. A light gauze wrap and Camacho bandage were placed. The patient was transferred to the recovery room in stable condition. There were no complications. Implants Medacta GMK spheriKA Femoral component SpheriKA size 4, tibial component size t3 i4, vitamin-E flex insert, thickness 11mm, Rubina patella implant size 2. Estimated Blood Loss 200 Drains No Pathology None sent Complications No immediate complications Condition Stable Disposition PACU [facility] Billing Surgery - Charge Forward: Surgery Billing
--- NOTE | 2025-01-16 14:20 | PC.NURSE ---
This patient, Vy Munoz, was admitted to 3 [facility] Surg Room 313-01. Patient/family oriented to hospital policies and general routines including ID bracelet, bed and alarms, visiting hours, pain management, procedures, bathroom and other care routines, personal items, smoking policy, room service/diet, and visiting hours. Information on how to activate the Rapid Response Team has been discussed. Patient/Family are encouraged to report perceived risks to care and to ask questions if they do not understand what they are told or what they should do.
[2025-01-16] MEDS: oxyCODONE/ACETAMINOPHEN (*CRX) 5-325 MG TABLET 1 TABLET PO ×2 (15:00→21:32)
[2025-01-16] MEDS: SENNA/DOCUSATE SODIUM TABLET 2 TAB PO (17:55)
[2025-01-16] MEDS: OPTI-GEN TAB 1 TABLET PO (17:56)
[2025-01-16] MEDS: ACETAMINOPHEN 325 MG TABLET 650 MG PO (17:56)
[2025-01-16] MEDS: cycloSPORINE 0.4 ML OPHTH SOLUTION 1 DROP EACH EYE (21:33)
[2025-01-17] MEDS: ceFAZolin 2 GM in SODIUM CHLORIDE 0.9% IV 50 ML 100 ML IVPB (00:33)
[2025-01-17] MEDS: ACETAMINOPHEN 325 MG TABLET 650 MG PO ×2 (00:33→11:16)
[2025-01-17] MEDS: oxyCODONE/ACETAMINOPHEN (*CRX) 10-325 MG TABLET 1 TAB PO (00:38)
[2025-01-17 04:01] VITALS: BP 104/67; PULSE 80; RESP 14; TEMP 36.6; O2SAT 96
[2025-01-17 06:53] LABS: Hematocrit 37.8 % (37.0-47.0); Hemoglobin 12.2 g/dL (12.0-15.0); Immature Granulocyte Percent A 0.5 % (0-0.5); Lymphocytes Absolute Auto 0.85 K/mm3 (0.9-3.2); Mean Corpuscular HGB Conc 32.3 g/dl (32-36); Mean Corpuscular Hemoglobin 29.0 pg (26-34); Mean Corpuscular Volume 90.0 fl (80-100); Nucleated Red Blood Cells Absolute Auto 0.000 K/mm3 (0.0-0.012); Nucleated Red Blood Cells Perc 0.0 % (0.0-0.2); Platelet Count Result 250 k/mm3 (150-375); Red Blood Count 4.20 M/mm3 (4.2-5.4); White Blood Count 11.3 K/mm3 (4.5-10.0)
[2025-01-17 07:17] LABS: Anion Gap 7 mmol/L (4-12); Blood Urea Nitrogen 25 mg/dL (7-17); Calcium 9.2 mg/dL (8.4-10.2); Carbon Dioxide 30 mmol/L (22-30); Chloride 103 mmol/L (98-107); Estimated CRCL calculation 66 ml/min; Estimated Glomerular Filt Rate > 60; Glucose 109 mg/dL (65-110); Potassium 4.5 mmol/L (3.4-5.0); Sodium 140 mmol/L (137-145)
[2025-01-17 08:01] VITALS: BP 128/64; PULSE 59; RESP 16; TEMP 36.7; O2SAT 96
[2025-01-17] MEDS: ASPIRIN 81 MG ENTERIC TABLET PO (08:49)
[2025-01-17] MEDS: SENNA/DOCUSATE SODIUM TABLET 2 TAB PO (08:49)
[2025-01-17] MEDS: OLMESARTAN MEDOXOMIL 20 MG TABLET 40 MG PO (08:49)
[2025-01-17] MEDS: MELOXICAM 7.5 MG TABLET PO (08:50)
[2025-01-17] MEDS: cycloSPORINE 0.4 ML OPHTH SOLUTION 1 DROP EACH EYE (08:50)
[2025-01-17] MEDS: MULTIVITAMINS THERAPEUTIC TAB (*BKC) 1 TABLET PO (08:50)
[2025-01-17] MEDS: OPTI-GEN TAB 1 TABLET PO (08:50)
[2025-01-17] MEDS: PANTOPRAZOLE 40 MG TABLET PO (08:50)
[2025-01-17] MEDS: ATORVASTATIN 40 MG TABLET PO (08:50)
[2025-01-17 09:36] VITALS: O2SAT 95
== END 2025-01-17 13:00 | disposition home or self-care (01) ==
LOC: ANHSURGERY 08:14 → ANH3MEDSUR 14:24
PROVIDERS: PCP Family Medicine; Visit Provider Orthopaedic Surgery
PROC: (CPT 27447; principal; 2025-01-16 10:30)
DX: M17.11 Unilateral primary osteoarthritis, right knee (principal); M25.761 Osteophyte, right knee; D64.9 Anemia, unspecified; K58.9 Irritable bowel syndrome, unspecified; K21.9 Gastro-esophageal reflux disease without esophagitis; I10 Essential (primary) hypertension; E78.00 Pure hypercholesterolemia, unspecified; Z91.09 Other allergy status, other than to drugs and biological substances; E66.9 Obesity, unspecified; Z68.37 Body mass index [BMI] 37.0-37.9, adult; Z79.82 Long term (current) use of aspirin; Z98.890 Other specified postprocedural states; Z80.51 Family history of malignant neoplasm of kidney; Z82.49 Family history of ischemic heart disease and other diseases of the circulatory system
CPT/HCPCS: 27447; 36415; 73560; 80048; 85025; 86850; 86900; 86901; 97110; 97161; 97166; 97530; 97535; J0690; A9270; C1713; J0166; J1100; J1885; J2003; J2250; J2405; J2704; J2795; J3010; J7120; J7512

== ENCOUNTER 2025-04-01 09:32 | Outpatient (CLI) | payer OTHER, SELFPAY ==
--- NOTE | ~2025-04-01 | XR_ITS ---
EXAMINATION: XR knee RT 3V, 04/01/2025 9:36 CDT HISTORY: Z96.651 - Presence of right artificial knee joint COMPARISON: No comparisons available. Findings: No acute fracture or malalignment. Arthroplasty intact Soft tissues unremarkable. Impression: No acute fracture or malalignment. Reviewed, dictated and finalized at location P. Impression: No acute fracture or malalignment.
== END 2025-04-01 09:33 | disposition home or self-care (01) ==
LOC: MICIMG 09:33
PROVIDERS: PCP Family Medicine; Visit Provider Orthopaedic Surgery
DX: Z96.651 Presence of right artificial knee joint (principal)
CPT/HCPCS: 73562